=== PATIENT | male | born 1980 | race Caucasian/White ===

== ENCOUNTER 2016-08-11 19:40 | Emergency (ER) | payer OTHER ==
[~2016-08-11] VITALS: Ht 170.2 cm; Wt 118.2 kg
[2016-08-11 19:41] VITALS: TEMP 97.6
[2016-08-11] MEDS ORDERED: AMOXICILLIN 8751 TAB PO (19:44)
[2016-08-11] MEDS ORDERED: AMOXICILLIN875 MG PO (19:54)
[2016-08-11] MEDS ORDERED: PERCOCET 325 MG1 TA2 PO (21:26)
[2016-08-11 22:05] VITALS: BP 130/77; PULSE 74
== END 2016-08-11 22:16 | disposition home or self-care (01) ==
LOC: COL.ER 19:40
DX: S52.502A Unspecified fracture of the lower end of left radius, initial encounter for closed fracture (principal); M25.512 Pain in left shoulder; M25.522 Pain in left elbow; W10.8XXA Fall (on) (from) other stairs and steps, initial encounter; Y92.009 Unspecified place in unspecified non-institutional (private) residence as the place of occurrence of the external cause
CPT/HCPCS: J2405; J3010; J7030

== ENCOUNTER 2016-08-17 06:52 | Day surgery (SDC) | payer OTHER ==
[~2016-08-17] VITALS: Ht 170.2 cm; Wt 122.3 kg
[~2016-08-17 06:52] MED LIST: AMOXICILLIN 8751 TAB PO; AMOXICILLIN875 MG PO; PERCOCET 325 MG1 TA2 PO
[2016-08-17 07:25] VITALS: BP 124/75; PULSE 86; TEMP 97.6
[2016-08-17] MEDS ORDERED: MINIPRESS 5M5 MG/CAP PO (07:31)
[2016-08-17] MEDS ORDERED: DESYREL 50MG50 MG PO (07:32)
[2016-08-17] MEDS ORDERED: ZOLOFT 100MG100 MG PO (07:32)
[2016-08-17 10:55] VITALS: BP 120/73; PULSE 80; TEMP 97.3
[2016-08-17 11:10] VITALS: BP 128/71; PULSE 78
[2016-08-17 11:25] VITALS: BP 132/79; PULSE 89
[2016-08-17 11:40] VITALS: BP 124/72; PULSE 88
[2016-08-17 12:10] VITALS: BP 141/72; PULSE 88
[2016-08-17] MEDS ORDERED: ROXICODONE 55 MG/TAB PO (12:14)
[2016-08-17] MEDS ORDERED: NORCO 325 MG-7.1 TAB PO (12:15)
== END 2016-08-17 12:40 | disposition home or self-care (01) ==
LOC: SDCO 06:52
DX: S52.502A Unspecified fracture of the lower end of left radius, initial encounter for closed fracture (principal); W10.9XXA Fall (on) (from) unspecified stairs and steps, initial encounter
CPT/HCPCS: C1713; J0690; J1100; J2250; J2704; J3010; J7120

== ENCOUNTER → 2019-03-06 | Outpatient (CLI) | payer OTHER ==
[~2019-03-06] MED LIST changes: +DESYREL 50MG50 MG PO; +MINIPRESS 5M5 MG/CAP PO; +NORCO 325 MG-7.1 TAB PO; +ROXICODONE 55 MG/TAB PO; +ZOLOFT 100MG100 MG PO
== END ==
LOC: COL.RAD 10:56
DX: M51.36 Other intervertebral disc degeneration, lumbar region (principal); M46.87 Other specified inflammatory spondylopathies, lumbosacral region

== ENCOUNTER 2019-06-26 08:00 | Outpatient (RCR) | payer OTHER | END 2019-07-02 | disposition home or self-care (01) | LOC: WSC | DX: M54.5 Low back pain (principal) ==

== ENCOUNTER 2019-07-17 08:00 | Outpatient (RCR) | payer OTHER ==
[2019-09-02] MEDS ORDERED: NORCO 325 MG-51 TAB PO (17:08)
== END 2019-10-01 | disposition still patient (30) ==
LOC: WSC
DX: M54.5 Low back pain (principal)

== ENCOUNTER 2019-09-02 12:45 | Emergency (ER) | payer BC ==
[~2019-09-02] VITALS: Ht 170.2 cm; Wt 135.0 kg
[2019-09-02 12:56] VITALS: BP 125/74; TEMP 97.1
[2019-09-02 16:23] LABS: BASO # 0.1 (0.0-0.2); BASO % 0.7 % (0.0-2.0); EOS # 0.3 (0.0-0.7); EOS % 3.6 % (0-4.0); GRAN # 3.7 (1.4-6.5); GRAN % 50.5 % (42.2-75.2); HEMOGLOBIN 14.2 g/dl (13.5-18.0); LYMPH # 2.8 (1.2-3.4); LYMPH % 37.7 % (20.0-51.0); MEAN CELL VOLUME 86 fl (80.0-100.0); MEAN CORPUSCULAR HEMOGLOBIN 29 pg (27.0-31.0); MEAN CORPUSCULAR HGB CONC 34 g/dl (33.0-37.0); MEAN PLATELET VOLUME 9.4 fl (7.4-10.4); MONO # 0.5 (0.1-0.6); MONO % 7.4 % (1.7-9.3); PLATELET COUNT 254 K/mm3 (130-400); RED BLOOD COUNT 4.88 M/mm3 (4.20-5.60); REDCELL DISTRIBUTION WIDTH-CV 12.6 % (11.5-14.5)
[2019-09-02 16:35] LABS: ALBUMIN 4.3 gm/dL (3.5-5.0); BILIRUBIN,TOTAL 0.8 mg/dL (0.0-1.0); CALCIUM 9.1 mg/dL (8.4-10.2); CREATININE, serum 0.71 (0.66-1.25); POTASSIUM 3.6 mmol/L (3.4-5.0); TOTAL PROTEIN 7.6 gm/dL (6.4-8.2)
[2019-09-02] MEDS ORDERED: NORCO 325 MG-51 TAB PO (17:08)
[2019-09-02 17:23] LABS: COLLECTION METHOD CLEAN CATCH
[2019-09-02 17:30] VITALS: PULSE 61
[2019-09-02 17:42] LABS: MUCOUS Present /lpf; PH 5 (5-8); SQUAMOUS EPITHELIAL 0-2 /hpf; URINE APPEARANCE Hazy; URINE BACTERIA None Seen /hpf; URINE BILIRUBIN Negative (NEGATIVE); URINE BLOOD Negative (NEGATIVE); URINE COLOR Yellow; URINE GLUCOSE Negative (NEGATIVE); URINE KETONE Negative (NEGATIVE); URINE LEUKOCYTE ESTERASE Negative (NEGATIVE); URINE NITRATE Negative (NEGATIVE); URINE PROTEIN(semi-quant) Negative (NEGATIVE); URINE RBC 0-2 /hpf; URINE UROBILINOGEN Negative (NEGATIVE)
== END 2019-09-02 17:30 | disposition home or self-care (01) ==
LOC: COL.ER 12:45
PROVIDERS: Emergency Medicine
DX: S30.1XXA Contusion of abdominal wall, initial encounter (principal); W01.190A Fall on same level from slipping, tripping and stumbling with subsequent striking against furniture, initial encounter; Y92.009 Unspecified place in unspecified non-institutional (private) residence as the place of occurrence of the external cause

== ENCOUNTER 2021-01-28 17:00 | Emergency (ER) | payer BC ==
[~2021-01-28] VITALS: Ht 170.2 cm; Wt 129.5 kg
[~2021-01-28 17:00] MED LIST changes: +NORCO 325 MG-51 TAB PO
[2021-01-28 19:26] LABS: BASO % 0.1 % (0.0-2.0); GRAN % 74.6 % (42.2-75.2); HEMATOCRIT 43.1 % (42.0-52.0); HEMOGLOBIN 14.7 g/dl (13.5-18.0); LYMPH # 1.6 (1.2-3.4); LYMPH % 19.5 % (20.0-51.0); MEAN CELL VOLUME 84 fl (80.0-100.0); MEAN CORPUSCULAR HEMOGLOBIN 29 pg (27.0-31.0); MEAN CORPUSCULAR HGB CONC 34 g/dl (33.0-37.0); MEAN PLATELET VOLUME 9.9 fl (7.4-10.4); MONO # 0.4 (0.1-0.6); MONO % 5.5 % (1.7-9.3); PLATELET COUNT 185 K/mm3 (130-400); RED BLOOD COUNT 5.12 M/mm3 (4.20-5.60); REDCELL DISTRIBUTION WIDTH-CV 12.8 % (11.5-14.5)
[2021-01-28 19:37] LABS: ALANINE AMINOTRANSFERASE 122 U/L (4-49); ALBUMIN 4.1 gm/dL (3.5-5.0); ALKALINE PHOSPHATASE 74 U/L (50-136); ANION GAP 7 mmol/L (7-16); AST,SGOT 94 U/L (15-37); BILIRUBIN,TOTAL 0.4 mg/dL (0.0-1.0); BLOOD UREA NITROGEN 12 mg/dL (9-20); CALCIUM 8.9 mg/dL (8.4-10.2); CARBON DIOXIDE 23 mmol/L (22-30); CHLORIDE 105 mmol/L (98-107); GLUCOSE 107 mg/dL (74-106); POTASSIUM 4.2 mmol/L (3.4-5.0); SODIUM 135 mmol/L (137-145); TOTAL PROTEIN 8.1 gm/dL (6.4-8.2)
[2021-01-28 19:56] LABS: TROPONIN-I < 0.012 ng/mL (0.000-0.035)
[2021-01-28] MEDS ORDERED: TYLENOL 325MG325 MG PO (20:45)
[2021-01-28] MEDS ORDERED: MOTRIN 600600 MG/TAB PO (20:45)
[2021-01-28] MEDS ORDERED: PROAIR HFA0.09 MG/AC IH (20:45)
[2021-01-28 21:15] VITALS: BP 138/80; PULSE 80; TEMP 99.4
--- NOTE | 2021-02-11 16:42 | NUR ---
railroad yard worker contacted Dereje with [facility] and provided clinical information. Patient plans for trach and peg placement tomorrow. Dereje verbalized there may be a bed in [facility] if insurance provides approval.
== END 2021-01-28 21:15 | disposition home or self-care (01) ==
LOC: COL.ER 17:00
PROVIDERS: Nurse Practitioner Primary Care
DX: U07.1 COVID-19 (principal); J12.82 Pneumonia due to coronavirus disease 2019
CPT/HCPCS: J0456; J0696; J1100; J7050; J7120

== ENCOUNTER 2021-01-30 13:21 | Inpatient (IN) | payer BC ==
[2021-01-30] VITALS (55 sets, daily range): BP systolic 139; BP diastolic 87; PULSE 101; TEMP 103.2; O2SAT 92–99
[~2021-01-30] VITALS: Ht 170.2 cm; Wt 108.9 kg
[~2021-01-30 13:21] MED LIST changes: +MOTRIN 600600 MG/TAB PO; +PROAIR HFA0.09 MG/AC IH; +TYLENOL 325MG325 MG PO
[2021-01-30 14:11] LABS: BASO % 0.1 % (0.0-2.0); GRAN % 75.1 % (42.2-75.2); HEMATOCRIT 44.6 % (42.0-52.0); HEMOGLOBIN 14.9 g/dl (13.5-18.0); LYMPH # 2.6 (1.2-3.4); LYMPH % 19.8 % (20.0-51.0); MEAN CELL VOLUME 86 fl (80.0-100.0); MEAN CORPUSCULAR HEMOGLOBIN 29 pg (27.0-31.0); MEAN CORPUSCULAR HGB CONC 33 g/dl (33.0-37.0); MEAN PLATELET VOLUME 9.8 fl (7.4-10.4); MONO # 0.5 (0.1-0.6); MONO % 3.9 % (1.7-9.3); PLATELET COUNT 239 K/mm3 (130-400); REDCELL DISTRIBUTION WIDTH-CV 13.2 % (11.5-14.5)
[2021-01-30 14:15] LABS: ALANINE AMINOTRANSFERASE 78 U/L (4-49); ALBUMIN 4.3 gm/dL (3.5-5.0); ALKALINE PHOSPHATASE 63 U/L (50-136); ANION GAP 9 mmol/L (7-16); AST,SGOT 73 U/L (15-37); BILIRUBIN,TOTAL 0.6 mg/dL (0.0-1.0); BLOOD UREA NITROGEN 15 mg/dL (9-20); CARBON DIOXIDE 25 mmol/L (22-30); CHLORIDE 107 mmol/L (98-107); CREATININE, serum 0.77 (0.66-1.25); GLUCOSE 113 mg/dL (74-106); POTASSIUM 3.9 mmol/L (3.4-5.0); SODIUM 141 mmol/L (137-145); TOTAL PROTEIN 8.4 gm/dL (6.4-8.2)
[2021-01-30 14:28] LABS: TROPONIN-I < 0.012 ng/mL (0.000-0.035)
[2021-01-30 14:28] LABS: ARTERIAL BLD GAS O2 SATURATION 92.2 % (92-100); ARTERIAL BLD GAS TCO2 CT 24.2; ARTERIAL BLOOD GAS BASE EXCESS 0.8 (-2-2); ARTERIAL BLOOD GAS HCO3 23.2 meq/L (22-26); ARTERIAL BLOOD GAS PCO2 31.2 mmHg (35-45); ARTERIAL BLOOD GAS PO2 62.5 mmHg (80-100); ARTERIAL BLOOD GAS pH 7.49 (7.35-7.45)
[2021-01-30 18:43] LABS: C-REACTIVE PROTEIN 3.1 mg/dL (0.0-0.9)
[2021-01-30 20:57] LABS: INR 1.2 (0.8-3.0); PROTHROMBIN TIME 13.6 SECONDS (9.7-12.8)
[2021-01-30 21:00] LABS: PARTIAL THROMBOPLASTIN TIME 29.4 SECONDS (26.0-37.0)
[2021-01-31] VITALS (658 sets, daily range): BP systolic 104–135; BP diastolic 60–86; PULSE 52–69; TEMP 97.5–97.9; O2SAT 86–100
[2021-01-31 05:21] LABS: ARTERIAL BLD GAS O2 SATURATION 97.4 % (92-100); ARTERIAL BLD GAS TCO2 CT 22.7; ARTERIAL BLOOD GAS BASE EXCESS -3.1 (-2-2); ARTERIAL BLOOD GAS HCO3 21.5 meq/L (22-26); ARTERIAL BLOOD GAS PCO2 37.4 mmHg (35-45); ARTERIAL BLOOD GAS PO2 94.9 mmHg (80-100); ARTERIAL BLOOD GAS pH 7.38 (7.35-7.45)
[2021-01-31 05:45] LABS: BASO % 0.1 % (0.0-2.0); GRAN # 7.9 (1.4-6.5); GRAN % 79.5 % (42.2-75.2); HEMATOCRIT 37.7 % (42.0-52.0); LYMPH # 1.6 (1.2-3.4); LYMPH % 16.5 % (20.0-51.0); MEAN CELL VOLUME 87 fl (80.0-100.0); MEAN CORPUSCULAR HEMOGLOBIN 29 pg (27.0-31.0); MEAN CORPUSCULAR HGB CONC 33 g/dl (33.0-37.0); MEAN PLATELET VOLUME 10.5 fl (7.4-10.4); MONO # 0.3 (0.1-0.6); MONO % 3.4 % (1.7-9.3); PLATELET COUNT 197 K/mm3 (130-400); RED BLOOD COUNT 4.35 M/mm3 (4.20-5.60); REDCELL DISTRIBUTION WIDTH-CV 13.5 % (11.5-14.5)
[2021-01-31 05:54] LABS: CREATININE, serum 0.85 (0.66-1.25); MAGNESIUM 1.9 mg/dL (1.6-2.3); PHOSPHOROUS 5.5 mg/dL (2.5-4.5)
[2021-01-31 05:58] LABS: HEMOGLOBIN 12.5 g/dl (13.5-18.0)
--- NOTE | 2021-01-31 07:51 | NUR ---
PATIENT ADMITTED TO ICU FROM ED FOR RESPIRATORY DISTRESS ON BIPAP WITH HIGH PROBABILITY OF NEEDING INTUBATION. EDUCATED PT ON WHAT INITUBATION IS AND WHEN/WHY WE INTUBATE. PT UNDERSTANDS HOWEVER REMAINS ANXIOUS ABOUT THE PROCESS. CENTRAL LINE AND ARREAGA PLACED ON ADMISSION. PT T MAX 103- ACETAMINOPHEN GIVEN. HR INITIALLY 110S AND THROUGOUT NIGHT DROPPED INTO 50S. PT AGREED TO PRONE AND DID SO ALL NIGHT, SATS STAYED 95-1005 ON BIPAP 100% FIO2. PT DENIED PAIN. REPORTED ANXIETY WHICH PRECEDEX WAS STARTED FOR. PT RELAXED IN AM AND WITH BRADYCARDIA, DECIDED TO STOP PRECEDEX. PT REPORTS NO ANXIETY AFTER DRIP DC'D. PT SLIGHTLY LABORED TO BREATH WHILE RESTING AND CANNOT TOLERATE WALKING- HAS AN UNSTEADY GAIT AND DESATS. PT TOLERATING PLAN OF CARE WELL. ABG PROGRESSING AND PT NOTIFIED OF THIS. NO OTHER QUESTIONS/CONCERNS AT THIS TIME. CARE RELINQUISHED AT THIS TIME.
[2021-01-31] MEDS ORDERED: VANTIN100 MG (08:12)
[2021-01-31] MEDS ORDERED: ZITHROMAX Z PA250 MG PO (08:13)
--- NOTE | 2021-01-31 19:30 | NUR ---
Received report from GENA Leslie.
--- NOTE | 2021-01-31 21:00 | NUR ---
Patient resting quietly in bed watching TV. All vitals within normal limits. Patient continues to receive BiPap at 85% FiO2, tolerating well. He denies any pain or discomfort. IVF infusing at 75 mL/hr. Bed in lowest position, all alarms on. Call light within reach. No further needs noted.
[2021-02-01] VITALS (855 sets, daily range): BP systolic 124–146; BP diastolic 79–91; PULSE 60–78; TEMP 97.5–98.9; O2SAT 77–100
[2021-02-01 04:16] LABS: ARTERIAL BLD GAS O2 SATURATION 96.4 % (92-100); ARTERIAL BLD GAS TCO2 CT 23.8; ARTERIAL BLOOD GAS BASE EXCESS -2.1 (-2-2); ARTERIAL BLOOD GAS HCO3 22.6 meq/L (22-26); ARTERIAL BLOOD GAS PCO2 38.8 mmHg (35-45); ARTERIAL BLOOD GAS PO2 85.8 mmHg (80-100); ARTERIAL BLOOD GAS pH 7.38 (7.35-7.45)
[2021-02-01 04:46] LABS: BASO % 0.1 % (0.0-2.0); GRAN # 13.5 (1.4-6.5); GRAN % 86.4 % (42.2-75.2); HEMOGLOBIN 12.3 g/dl (13.5-18.0); LYMPH # 1.4 (1.2-3.4); MEAN CELL VOLUME 85 fl (80.0-100.0); MEAN CORPUSCULAR HEMOGLOBIN 28 pg (27.0-31.0); MEAN CORPUSCULAR HGB CONC 33 g/dl (33.0-37.0); MEAN PLATELET VOLUME 10.4 fl (7.4-10.4); MONO # 0.6 (0.1-0.6); MONO % 3.8 % (1.7-9.3); PLATELET COUNT 215 K/mm3 (130-400); RED BLOOD COUNT 4.34 M/mm3 (4.20-5.60); REDCELL DISTRIBUTION WIDTH-CV 13.4 % (11.5-14.5)
[2021-02-01 04:49] LABS: HEMATOCRIT 36.9 % (42.0-52.0)
[2021-02-01 04:59] LABS: CALCIUM 8.1 mg/dL (8.4-10.2); CREATININE, serum 0.51 (0.66-1.25); MAGNESIUM 2.2 mg/dL (1.6-2.3); POTASSIUM 3.8 mmol/L (3.4-5.0)
[2021-02-01 05:10] LABS: C-REACTIVE PROTEIN 15.5 mg/dL (0.0-0.9)
--- NOTE | 2021-02-01 18:52 | NUR ---
Pt tolerated BiPAP all day without difficulty. Pt states he is in good spirits and denies shortness of breath and states his breathing is getting better. Pt does desaturate in to the upper 80's during short BiPAP breaks for meals/hydration. Sister Carol updated earlier.
[2021-02-02] VITALS (939 sets, daily range): BP systolic 134–153; BP diastolic 74–93; PULSE 66–93; TEMP 97.3–99.3; O2SAT 80–100
[2021-02-02 05:17] LABS: BASO % 0.1 % (0.0-2.0); GRAN # 14.6 (1.4-6.5); GRAN % 86.9 % (42.2-75.2); HEMATOCRIT 37.3 % (42.0-52.0); HEMOGLOBIN 12.5 g/dl (13.5-18.0); LYMPH # 1.3 (1.2-3.4); LYMPH % 7.9 % (20.0-51.0); MEAN CELL VOLUME 85 fl (80.0-100.0); MEAN CORPUSCULAR HEMOGLOBIN 28 pg (27.0-31.0); MEAN CORPUSCULAR HGB CONC 34 g/dl (33.0-37.0); MEAN PLATELET VOLUME 10.2 fl (7.4-10.4); MONO # 0.7 (0.1-0.6); MONO % 4.1 % (1.7-9.3); PLATELET COUNT 256 K/mm3 (130-400); REDCELL DISTRIBUTION WIDTH-CV 13.4 % (11.5-14.5)
[2021-02-02 05:29] LABS: C-REACTIVE PROTEIN 5.6 mg/dL (0.0-0.9); CALCIUM 8.1 mg/dL (8.4-10.2); CREATININE, serum 0.53 (0.66-1.25); MAGNESIUM 2.4 mg/dL (1.6-2.3); PHOSPHOROUS 3.2 mg/dL (2.5-4.5); POTASSIUM 3.9 mmol/L (3.4-5.0)
[2021-02-02 06:02] LABS: ARTERIAL BLD GAS O2 SATURATION 91.8 % (92-100); ARTERIAL BLD GAS TCO2 CT 26.3; ARTERIAL BLOOD GAS BASE EXCESS -0.4 (-2-2); ARTERIAL BLOOD GAS HCO3 24.9 meq/L (22-26); ARTERIAL BLOOD GAS PCO2 43.5 mmHg (35-45); ARTERIAL BLOOD GAS PO2 63.6 mmHg (80-100); ARTERIAL BLOOD GAS pH 7.38 (7.35-7.45)
--- NOTE | 2021-02-02 07:25 | NUR ---
BEDSIDE SHIFT REPORT RECEIVED FROM GENA BONE. PATIENT RESTING IN BED WITH EYES OPEN. VSS AT THIS TIME OTHER THAN BEING A BIT HYPERTENSIVE AND ANXIOUS. CALL LIGHT WITHIN REACH. STILL ON BIPAP. ARREAGA CATHETER PATENT AND DRAINING TO GRAVITY. FLUIDS GOING INTO RIJ TLC. TWO PERIPHERAL LINES IN. NO COMPLAINTS AT THIS TIME.
--- NOTE | 2021-02-02 09:12 | NUR ---
DR. DOMÍNGUEZ AT BEDSIDE. SPOKE TO REGARDING PATIENT'S HYPERTENSION FROM ANXIETY AND WANTING TO SWITCH TO AIRVO FOR A TRIAL. AGREEABLE AND SAID WOULD PLACE ORDERS FOR ANXIETY MEDICATION.
--- NOTE | 2021-02-02 09:38 | NUR ---
DR. SANFORD AT BEDSIDE. AGREEABLE TO AIRVO TRIAL. WILL CALL RESPIRATORY.
--- NOTE | 2021-02-02 10:30 | NUR ---
PATIENT SWITCHED TO AIRVO SUCCESSFULLY. WILL SEE HOW HE DOES THROUGHOUT THE DAY. ENCOURAGED TO PRONE IF COMFORTABLE ON AIRVO MASK.
--- NOTE | 2021-02-02 15:30 | NUR ---
KALI attempted to call patient on cell phone [phone] to complete intake, no answer. KALI attempted to call spouse Neelam at [phone]. No answer. KALI will continue to contact to complete intake. KALI will continue to follow.
--- NOTE | 2021-02-02 19:15 | NUR ---
Received report from GENA Tuttle.
--- NOTE | 2021-02-02 19:45 | NUR ---
Patient resting quietly in bed watching television. Receiving AirVo at 60L 75-80% FiO2, tolerating well. Patient self-proned with assistance of staff. States feeling short of breath following repositioning; some anxiety noted. PRN Ativan administered. Within ten minutes, patient states he feels more comfortable. Axillary temperature of 99.3, all other vitals within normal limits. Denies any pain or discomfort.
[2021-02-03] VITALS (594 sets, daily range): BP systolic 116–154; BP diastolic 47–87; PULSE 72–100; TEMP 98.5–101; O2SAT 38–100
[2021-02-03 05:01] LABS: BASO % 0.1 % (0.0-2.0); GRAN # 11.9 (1.4-6.5); GRAN % 80.9 % (42.2-75.2); HEMATOCRIT 38.1 % (42.0-52.0); HEMOGLOBIN 12.9 g/dl (13.5-18.0); LYMPH % 13.9 % (20.0-51.0); MEAN CELL VOLUME 84 fl (80.0-100.0); MEAN CORPUSCULAR HEMOGLOBIN 28 pg (27.0-31.0); MEAN CORPUSCULAR HGB CONC 34 g/dl (33.0-37.0); MEAN PLATELET VOLUME 10.1 fl (7.4-10.4); MONO # 0.4 (0.1-0.6); MONO % 2.6 % (1.7-9.3); PLATELET COUNT 296 K/mm3 (130-400); RED BLOOD COUNT 4.54 M/mm3 (4.20-5.60); REDCELL DISTRIBUTION WIDTH-CV 13.2 % (11.5-14.5)
[2021-02-03 05:17] LABS: C-REACTIVE PROTEIN 5.9 mg/dL (0.0-0.9); CALCIUM 8.1 mg/dL (8.4-10.2); CREATININE, serum 0.6 (0.66-1.25); POTASSIUM 3.7 mmol/L (3.4-5.0)
--- NOTE | 2021-02-03 07:19 | NUR ---
BEDSIDE SHIFT REPORT RECEIVED FROM GENA ROCK. PATIENT STILL ON AIRVO AND TOLERATING WELL. VSS FOR PATIENT'S BASELINE. RECEIVING ATIVAN FOR ANXIETY AND CONSEQUENTIAL HYPERTENSION. CALL BURROWS WITHIN REACH. ARREAGA CATHETER IN PLACE. FLUIDS STILL RUNNING.
--- NOTE | 2021-02-03 09:53 | NUR ---
Late entry: On 01/31/2021, social media marketing specialist contacted patient's sister Carol and confirmed that patient's in October of 2020 and that patient has a 16 year old son (Jung) and a 19 year old son, Boris #[phone]. Per patient, Carol was given the code to call in and obtain information about patient to pass along to patient's family. 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 Patient continues to pay to have continued coverage under his 's plan through [employer]. Carol stated that after patient's , his mother (who is currently in [place] and waiting for Covid status to clear before she returns) and patient's niece, Gaby [phone] are staying with patient. Patient's 16 year old son is in the home with Gaby. Case management will continue to follow patient and assist with securing a safe discharge plan.
--- NOTE | 2021-02-03 10:12 | NUR ---
PATIENT'S SATURATIONS HAVE BEEN SETTLING IN MID 80S. NOTIFIED RESPIRATORY THERAPY REGARDING INCREASED OXYGEN NEEDS. STATED HE WILL COME DOWN.
--- NOTE | 2021-02-03 10:18 | NUR ---
RESPIRATORY AT BEDSIDE TO ADJUST AIRVO. SATURATIONS WERE IN 90S AND THEN DECREASED ONCE AGAIN TO MID TO HIGH 80s. WENT IN TO SWITCH PATIENT BACK TO BIPAP. ORIGINALLY ON 70% FiO2 AND OK'D VIA RESPIRATORY TO INCREASE FROM THE DOOR BECAUSE OF ISOLATION PRECAUTIONS. O2 WAS IN CREASED TO 90% AND ADVISED PATIENT THAT HE NEEDED TO SLOW BREATHING IF HE EXPECTED TO KEEP HIS SATURATION LEVELS UP. ALSO ADVISED PATIENT THAT WE WOULD HAVE TO INTUBATE HIM SHOULD HE CONTINUE TO HYPERVENTILATE AND DROP IN SATURATION LEVEL.
--- NOTE | 2021-02-03 10:30 | NUR ---
PATIENT'S SISTER CALLED FOR AN UPDATE. NOTIFIED ABOUT INCREASED O2 NEEDS.
--- NOTE | 2021-02-03 14:17 | NUR ---
derrick worker well service met with patient's nurse and requested PT/OT orders. Patient is currently on a bipap. Will await therapy orders and follow patient to assist with securing a safe discharge plan. Will follow and assess for appropriateness of [facility] referral.
--- NOTE | 2021-02-03 18:12 | NUR ---
WENT IN TO ASSESS PATIENT AND GIVE EVENING MEDS. ATTEMPTED TO SWITCH PATIENT TO AIRVO MASK TO GIVE ORAL MEDICATION AND TO TRY EATING DINNER. SATURATION LEVELS DROPPED AND PATIENT COULD NOT TOLERATE BEING OFF BIPAP. SATURATIONS DROPPED TO THE 70s.
--- NOTE | 2021-02-03 18:45 | NUR ---
CALLED RESPIRATORY TO UPDATE REGARDING PATIENT'S RESPIRATORY STATUS. EXPLAINED SWITCHING TO BIPAP AND INCREASED OXYGENATION NEEDS. SAID SHE WOULD COME DOWN TO ASSESS AND ADJUST SETTINGS.
--- NOTE | 2021-02-03 18:46 | NUR ---
CALLED ALLEGRA BONE REGARDING PATIENT'S OXYGEN STATUS WITH CONCERN FOR NEEDING INTUBATION. SMITHA AGREEABLE BUT WANTING TO UPDATE DR. FRAZIER TO GET INPUT ON RECOMMENDATIONS. ADVISED TO CALL HIM. WILL CALL.
--- NOTE | 2021-02-03 18:47 | NUR ---
CALLED ANESTHESIA TO GIVE NOTICE OF POSSIBLE INTUBATION.
--- NOTE | 2021-02-03 18:47 | NUR ---
CALLED DR. FRAZIER TO UPDATE ON PATIENT'S STATUS AND INCREASING OXYGENATION NEEDS. EXPLAINED HOW PATIENT WOULD BECOME TACHYPNIC AND DECOMPENSATE. EXPLAINED HOW THIS NURSE HAD ADVISED PATIENT ABOUT NEEDING TO SLOW BREATHING DOWN TO INCREASE O2 SATURATION. WAS ASKED TO TRANSFER TO [facility] TO CONFER.
--- NOTE | 2021-02-03 19:56 | NUR ---
CONSENT FOR INTUBATION WAS OBTAINED VERBALLY FROM PATIENT WITH 2 WITNESSING REGISTERED NURSES AT BEDSIDE. EXPLAINED PROCEDURE AND ANSWERED ALL QUESTIONS AT 190 AND ANESTHESIA CAME IN TO BEGIN PROCEDURE WITH RESPIRATORY THERAPY. 1912 2MG OF VERSED WAS PUSHED. 1913 200MCG PROPOFOL WAS PUSHED WITH 100MG OF SUCCITYLCOLEINE. PATIENT WAS INTUBATED AT 1914 WITH 8.5 TUBE, CONFIRMED WITH BREATH SOUNDS AND 23 AT THE LIPS. CONCERNED FOR SATURATION LEVEL IN 70s AND RECHECKED BREATH SOUNDS AND CONFIRMED WITH RESPIRATORY. PROPOFOL AND FENTANYL DRIPS STARTED AT 1921. OG WAS PLACED AT 1922 AND 61CM AT THE TEETH. 1932 CONCERN FOR SATURATION LEVELS AND EXCESSIVE COUGHING, GIVEN VECURONIUM 10MG AND PATIENT SUCCESSFULLY HAD SATURATION LEVELS COME UP TO HIGH 80s. CALLED TO CONFIRM WITH CHEST XRAY.
[2021-02-03 20:36] LABS: ARTERIAL BLD GAS TCO2 CT 28.9; ARTERIAL BLOOD GAS BASE EXCESS 2.9 (-2-2); ARTERIAL BLOOD GAS HCO3 27.6 meq/L (22-26); ARTERIAL BLOOD GAS PCO2 42.6 mmHg (35-45); ARTERIAL BLOOD GAS PO2 74.4 mmHg (80-100); ARTERIAL BLOOD GAS pH 7.43 (7.35-7.45)
[2021-02-03 22:57] LABS: ARTERIAL BLD GAS O2 SATURATION 94.6 % (92-100); ARTERIAL BLD GAS TCO2 CT 26.4; ARTERIAL BLOOD GAS HCO3 25.2 meq/L (22-26); ARTERIAL BLOOD GAS PCO2 38.7 mmHg (35-45); ARTERIAL BLOOD GAS pH 7.43 (7.35-7.45)
[2021-02-04] VITALS (592 sets, daily range): BP systolic 95–131; BP diastolic 65–81; PULSE 45–73; TEMP 98.3–99.5; O2SAT 72–100
--- NOTE | 2021-02-04 01:30 | NUR ---
PATIENT O2 SATS DIMINISH TO 85%, BREATH SOUNDS DIFFICULT TO OBTAIN, PLACE IN PRONE POSITION, VENTILATION AND PEEP INCREASED
[2021-02-04 01:53] LABS: ARTERIAL BLD GAS O2 SATURATION 87.9 % (92-100); ARTERIAL BLD GAS TCO2 CT 24.2; ARTERIAL BLOOD GAS BASE EXCESS -0.7 (-2-2); ARTERIAL BLOOD GAS HCO3 23.1 meq/L (22-26); ARTERIAL BLOOD GAS PCO2 35.4 mmHg (35-45); ARTERIAL BLOOD GAS PO2 52.5 mmHg (80-100); ARTERIAL BLOOD GAS pH 7.43 (7.35-7.45)
--- NOTE | 2021-02-04 05:22 | NUR ---
0215 RT,RN HOSPITLIST, HOUSE SUP, AT BEDSIDE. PATIENTS SATURATIONS DECLINED ON VENT. RT BAGGING PT SATURATIONS DID IMPROVE WITH BVM VENTILATION. RT AND RN BAG LAVAGED PATIENT GETTING LARGE THICK CLEAR SECRTIONS ORALLY AND DOWN THE ET TUBE WITH LITTLE SATURATION IMPROVEMENT. ULTIMATELY ENDING IN PRONING PT WITH A BIG IMPROVMENT IN SATURATIONS WITH VENT SETTINGS 450/24/20/100%
[2021-02-04 06:14] LABS: ARTERIAL BLD GAS O2 SATURATION 99.2 % (92-100); ARTERIAL BLD GAS TCO2 CT 27.2; ARTERIAL BLOOD GAS BASE EXCESS 0.4 (-2-2); ARTERIAL BLOOD GAS HCO3 25.8 meq/L (22-26); ARTERIAL BLOOD GAS PCO2 44.9 mmHg (35-45); ARTERIAL BLOOD GAS PO2 211.4 mmHg (80-100); ARTERIAL BLOOD GAS pH 7.38 (7.35-7.45)
[2021-02-04 06:30] LABS: HEMATOCRIT 39.8 % (42.0-52.0); HEMOGLOBIN 13.3 g/dl (13.5-18.0); MEAN CELL VOLUME 85 fl (80.0-100.0); MEAN CORPUSCULAR HEMOGLOBIN 28 pg (27.0-31.0); MEAN CORPUSCULAR HGB CONC 33 g/dl (33.0-37.0); MEAN PLATELET VOLUME 9.8 fl (7.4-10.4); PLATELET COUNT 308 K/mm3 (130-400); RED BLOOD COUNT 4.68 M/mm3 (4.20-5.60); REDCELL DISTRIBUTION WIDTH-CV 13.2 % (11.5-14.5)
[2021-02-04 06:42] LABS: CALCIUM 8.6 mg/dL (8.4-10.2); CREATININE, serum 0.86 (0.66-1.25); POTASSIUM 3.8 mmol/L (3.4-5.0)
[2021-02-04 06:57] LABS: C-REACTIVE PROTEIN 21.3 mg/dL (0.0-0.9)
--- NOTE | 2021-02-04 07:00 | NUR ---
PATIENT LEFT AT SDETTING CAUSE WHEN NOT DISTURBED WOULD SLEEP AND CAN EASILY BE AWAKENED, INTUBATION 12 HOURS AGO
[2021-02-04 07:19] LABS: BAND 7 % (0-10); EOSINOPHIL 1 % (0-4); LYMPHOCYTE 7 % (20.0-51.0); NEUTROPHILS 80 % (42.0-75.2); PLATELET ESTIMATE NORMAL (NORMAL)
[2021-02-04 10:57] LABS: MAGNESIUM 2.8 mg/dL (1.6-2.3); PHOSPHOROUS 5.3 mg/dL (2.5-4.5)
--- NOTE | 2021-02-04 15:57 | NUR ---
Pt tolerated prone placement without difficulty. Prior to proning: pt able to open eyes, follow commands and nonverbally communicate understanding on proning process - pt also informed, per sister Carol that all the family is praying for him.
--- NOTE | 2021-02-04 17:00 | NUR ---
Sedation Vacation not completed d/t prone position. However pt is able to open eyes and respond to verbal stimuli and shake head in understanding to keep head still while laying prone.
[2021-02-05] VITALS (609 sets, daily range): BP systolic 109–122; BP diastolic 56–72; PULSE 41–58; TEMP 98.4–99; O2SAT 90–100
[2021-02-05 05:03] LABS: HEMATOCRIT 38.7 % (42.0-52.0); HEMOGLOBIN 12.6 g/dl (13.5-18.0); MEAN CELL VOLUME 86 fl (80.0-100.0); MEAN CORPUSCULAR HEMOGLOBIN 28 pg (27.0-31.0); MEAN CORPUSCULAR HGB CONC 33 g/dl (33.0-37.0); MEAN PLATELET VOLUME 10.2 fl (7.4-10.4); PLATELET COUNT 302 K/mm3 (130-400); REDCELL DISTRIBUTION WIDTH-CV 13.3 % (11.5-14.5)
[2021-02-05 05:12] LABS: CALCIUM 8.3 mg/dL (8.4-10.2); CREATININE, serum 0.73 (0.66-1.25)
[2021-02-05 05:32] LABS: C-REACTIVE PROTEIN 14.3 mg/dL (0.0-0.9)
[2021-02-05 05:35] LABS: ARTERIAL BLD GAS TCO2 CT 26.5; ARTERIAL BLOOD GAS BASE EXCESS -0.3 (-2-2); ARTERIAL BLOOD GAS HCO3 25.2 meq/L (22-26); ARTERIAL BLOOD GAS PCO2 43.9 mmHg (35-45); ARTERIAL BLOOD GAS PO2 197.2 mmHg (80-100); ARTERIAL BLOOD GAS pH 7.38 (7.35-7.45)
[2021-02-05 05:36] LABS: BAND 1 % (0-10); BASOPHIL 1 % (0-2); EOSINOPHIL 1 % (0-4); LYMPHOCYTE 11 % (20.0-51.0); NEUTROPHILS 85 % (42.0-75.2); PLATELET ESTIMATE NORMAL (NORMAL)
[2021-02-05 05:37] LABS: HYPOCHROMIA 1+
--- NOTE | 2021-02-05 06:27 | NUR ---
PATIENT ANESTHIA AND PAIN MEDICATIONS RETURNS TO ORGINAL SETTINGS OF FENTANYL 100 MCQ/HR AND PROPOFOLOL AT 30 MCQ/KG/HR, CAUSE PATIENT IN PRONE POSTION IN BED NO WEANING TRIAL YET.
--- NOTE | 2021-02-05 08:00 | NUR ---
Pt tolerated position change from prone to supine well and without difficulty and no line or tube compromise. Pt is able to nod head yes to nonverbally communicate: Orientation and brief education provided. MD Deshawn called to update Carol family member
--- NOTE | 2021-02-05 14:41 | NUR ---
Patient's 19 year old son, Boris [phone] is patient's legal next of kin. family caseworker spoke with patient's nurse and advised of the above information. Patient is currently on a ventilator. Worker left message for patient's sister, Carol [phone] to call.
--- NOTE | 2021-02-05 17:20 | NUR ---
Pt tolerated proning without diffulties or line/tube compromise. Prior to proning Teressa,RT fixed an audible leak that could be heard during exhalation.
--- NOTE | 2021-02-05 18:20 | NUR ---
Pt becoming aggitated, lifting up head and upper body while prone causing the ventilator to trip high priority alarms. Pt calmed down verbaly, pt nods head in agreement, pt denies pain or discomfort, specific cause of restlessness uncertain. Pt hand held and positive reinforcement provided.
--- NOTE | 2021-02-05 20:00 | NUR ---
RECIEVED REPORT FROM JERALD AVERY. PT ASSESSMENT AND VITAL SIGNS COMPLETED. SEE DOCUMENTATION. PATIENT IN THE PRONE POSITION AT THIS TIME. WAKING EASILY. BUT FOLLOWS COMMANDS.
[2021-02-06] VITALS (685 sets, daily range): BP systolic 103–115; BP diastolic 61–64; PULSE 50–63; TEMP 97–98.9; O2SAT 56–100
[2021-02-06 04:20] LABS: HEMOGLOBIN 11.6 g/dl (13.5-18.0); MEAN CELL VOLUME 87 fl (80.0-100.0); MEAN CORPUSCULAR HEMOGLOBIN 28 pg (27.0-31.0); MEAN CORPUSCULAR HGB CONC 32 g/dl (33.0-37.0); MEAN PLATELET VOLUME 10.2 fl (7.4-10.4); PLATELET COUNT 335 K/mm3 (130-400); RED BLOOD COUNT 4.12 M/mm3 (4.20-5.60); REDCELL DISTRIBUTION WIDTH-CV 13.3 % (11.5-14.5)
[2021-02-06 04:22] LABS: HEMATOCRIT 35.8 % (42.0-52.0)
[2021-02-06 04:30] LABS: CALCIUM 8.1 mg/dL (8.4-10.2); CREATININE, serum 0.67 (0.66-1.25); POTASSIUM 3.8 mmol/L (3.4-5.0)
[2021-02-06 04:33] LABS: EOSINOPHIL 8 % (0-4); LYMPHOCYTE 9 % (20.0-51.0); NEUTROPHILS 77 % (42.0-75.2); PLATELET ESTIMATE NORMAL (NORMAL)
[2021-02-06 04:34] LABS: HYPOCHROMIA 1+
--- NOTE | 2021-02-06 08:45 | NUR ---
PICC intact right upper arm. PICC dressing change done with sterile technique. Small amount of red drainage noted at site. Insertion site cleansed with ChloraPrep x1, chlorhexidine impregnated disc applied, skin prep, StatLock, and Tegaderm applied. No signs or symptoms of IV complications noted. No further drainage. Arm wrapped with Lul to protect catheter.
[2021-02-06 12:04] LABS: ARTERIAL BLD GAS O2 SATURATION 96.2 % (92-100); ARTERIAL BLD GAS TCO2 CT 29.5; ARTERIAL BLOOD GAS BASE EXCESS 3.7 (-2-2); ARTERIAL BLOOD GAS HCO3 28.2 meq/L (22-26); ARTERIAL BLOOD GAS PCO2 42.5 mmHg (35-45); ARTERIAL BLOOD GAS PO2 89.8 mmHg (80-100); ARTERIAL BLOOD GAS pH 7.44 (7.35-7.45)
--- NOTE | 2021-02-06 14:30 | NUR ---
Left nare epistaxis noted. Approx. 3mL blood loss, hemostasis occured with no intervention - bleeding had already stopped prior to entering room and observing
--- NOTE | 2021-02-06 16:00 | NUR ---
Pt tolerated proning well and with no difficulties or complications
--- NOTE | 2021-02-06 19:15 | NUR ---
Received report from GENA Leslie.
--- NOTE | 2021-02-06 20:00 | NUR ---
Patient resting quietly in bed. In prone position at this time, tolerating well. Opens eyes to speech and follows verbal commands. Skin cool and dry to touch. All vitals within normal limits.
[2021-02-07] VITALS (795 sets, daily range): BP systolic 97–118; BP diastolic 55–72; PULSE 64–114; TEMP 98.5–100.1; O2SAT 72–100
--- NOTE | 2021-02-07 05:00 | NUR ---
Patient proned, no sedation vacation performed.
[2021-02-07 05:41] LABS: HEMATOCRIT 40.8 % (42.0-52.0); HEMOGLOBIN 12.8 g/dl (13.5-18.0); MEAN CELL VOLUME 91 fl (80.0-100.0); MEAN CORPUSCULAR HEMOGLOBIN 29 pg (27.0-31.0); MEAN CORPUSCULAR HGB CONC 31 g/dl (33.0-37.0); MEAN PLATELET VOLUME 10.3 fl (7.4-10.4); PLATELET COUNT 328 K/mm3 (130-400); RED BLOOD COUNT 4.48 M/mm3 (4.20-5.60); REDCELL DISTRIBUTION WIDTH-CV 13.7 % (11.5-14.5)
[2021-02-07 05:50] LABS: CALCIUM 7.9 mg/dL (8.4-10.2); CREATININE, serum 0.7 (0.66-1.25); POTASSIUM 3.6 mmol/L (3.4-5.0)
[2021-02-07 06:45] LABS: BAND 19 % (0-10); EOSINOPHIL 4 % (0-4); LYMPHOCYTE 38 % (20.0-51.0); METAMYELOCYTE 1 % (0-0); NEUTROPHILS 22 % (42.0-75.2); PLATELET ESTIMATE NORMAL (NORMAL)
--- NOTE | 2021-02-07 07:30 | NUR ---
REPORT RECEIVED FROM GENA ROCK
--- NOTE | 2021-02-07 07:45 | NUR ---
PATIENT PLACED IN SUPINE POSITION D/T RESTLESSNESS AND HE IS TRYING TO SIT HIMSELF UP. HE TOLERATED FLIPPING TO SUPINE WITH NO ISSUE. VS REMAIN STABLE. HE CALMS AFTER HE IS REPOSITIONED.
[2021-02-07 08:31] LABS: ARTERIAL BLD GAS O2 SATURATION 88.5 % (92-100); ARTERIAL BLD GAS TCO2 CT 27.7; ARTERIAL BLOOD GAS BASE EXCESS -0.1 (-2-2); ARTERIAL BLOOD GAS HCO3 26.2 meq/L (22-26); ARTERIAL BLOOD GAS PCO2 49.2 mmHg (35-45); ARTERIAL BLOOD GAS PO2 54.9 mmHg (80-100); ARTERIAL BLOOD GAS pH 7.34 (7.35-7.45)
--- NOTE | 2021-02-07 09:00 | NUR ---
DR. FRAZIER HERE TO SEE PATIENT. VENT SETTINGS ADJUSTED, PER HIS ORDERS. HE STATES TO ADD PROPOFOL IF PATIENT BECOMES AGITATED AND DIFFICULT TO SEDATE.
[2021-02-07 16:13] LABS: ARTERIAL BLD GAS O2 SATURATION 98.6 % (92-100); ARTERIAL BLOOD GAS BASE EXCESS 3.7 (-2-2); ARTERIAL BLOOD GAS HCO3 29.5 meq/L (22-26); ARTERIAL BLOOD GAS PCO2 48.9 mmHg (35-45)
[2021-02-07 16:14] LABS: ARTERIAL BLOOD GAS PO2 142.7 mmHg (80-100)
--- NOTE | 2021-02-07 18:00 | NUR ---
PROPOFOL ADDED TO SEDATION D/T RESTLESSNESS.
--- NOTE | 2021-02-07 19:20 | NUR ---
SEDATION VACATION NOT ATTEMPTED DUE TO RESTLESSNESS; PROPOFOL INITIATED PER DR. FRAZIER
--- NOTE | 2021-02-07 19:45 | NUR ---
REPORT GIVEN TO GENA DAUGHERTY
[2021-02-08] VITALS (606 sets, daily range): BP systolic 94–113; BP diastolic 57–75; PULSE 52–78; TEMP 96.8–98.6; O2SAT 76–100
--- NOTE | 2021-02-08 05:50 | NUR ---
PT HAD SIGNIFCANT CUFF LEAK AND KINK IN TUBE WHILE IN PRONE POSITION THAT PT WAS NOT BEING VENTILATED PEOPERLY. AT [address]. OLD TUBE TAKEN OUT AT 0216, NEW TUBE PUT IN PLACE AT 0219. 23 @ TEETH 8.5. PT PLACED BACK ON VENT VENTILATING FINE BUT LOW SATUARTIONS AT 63% PT TAKEN OFF VENT, BAGGED BY ANESTHESIA WITH BIG VT, BAG HAS PEEP VALVE WELL. AFTER 2 MINUTES OF BAGGING PT SATURATIONS IMPROVED TO 93%. PT THEN PLACED BACK ON VENT. TUBE SECURED WITH HOLISTER WITH A BITE BLOCK AND NEW KANG IN LINE SUCTION.
[2021-02-08 06:00] LABS: ARTERIAL BLD GAS O2 SATURATION 93.8 % (92-100); ARTERIAL BLD GAS TCO2 CT 27.6; ARTERIAL BLOOD GAS BASE EXCESS 2.1 (-2-2); ARTERIAL BLOOD GAS HCO3 26.4 meq/L (22-26); ARTERIAL BLOOD GAS PCO2 40.2 mmHg (35-45); ARTERIAL BLOOD GAS PO2 67.4 mmHg (80-100); ARTERIAL BLOOD GAS pH 7.44 (7.35-7.45)
[2021-02-08 06:33] LABS: BASO % 0.1 % (0.0-2.0); EOS # 0.3 (0.0-0.7); GRAN # 5.3 (1.4-6.5); GRAN % 77.7 % (42.2-75.2); HEMATOCRIT 37.1 % (42.0-52.0); HEMOGLOBIN 12.1 g/dl (13.5-18.0); LYMPH # 0.9 (1.2-3.4); LYMPH % 12.6 % (20.0-51.0); MEAN CELL VOLUME 90 fl (80.0-100.0); MEAN CORPUSCULAR HEMOGLOBIN 29 pg (27.0-31.0); MEAN CORPUSCULAR HGB CONC 33 g/dl (33.0-37.0); MEAN PLATELET VOLUME 10.1 fl (7.4-10.4); MONO # 0.3 (0.1-0.6); MONO % 4.3 % (1.7-9.3); PLATELET COUNT 303 K/mm3 (130-400); RED BLOOD COUNT 4.13 M/mm3 (4.20-5.60); REDCELL DISTRIBUTION WIDTH-CV 13.7 % (11.5-14.5)
[2021-02-08 06:44] LABS: CALCIUM 7.6 mg/dL (8.4-10.2); CREATININE, serum 0.52 (0.66-1.25); POTASSIUM 4.3 mmol/L (3.4-5.0)
--- NOTE | 2021-02-08 06:53 | NUR ---
NO SEDATION VACATION DUE TO 2 PROCEDURES THIS NIGHT. INCLUDING CHEST TUBE INSERTION. KEPT SEDATED FOR COMFORT. ACTIVE IN ALL 4 EXTREMETIES AND GRIMACES TO PAIN.
--- NOTE | 2021-02-08 07:30 | NUR ---
REPORT RECEIVED FROM GENA DAUGHERTY
--- NOTE | 2021-02-08 08:07 | NUR ---
AROUND 0100 PATIENT VENTILATOR ALARMED FOR SEVERAL STRANGE ALARMS THAT DIDNT CORRELATE WITH PATIENT ACTUAL PRESENTATION. WHILE EVALUATING PATIENT, NOTED THAT CUFF SOUNDED LOW ON AIR. CUFF WAS REINFLATED AND ISSUE WOULD TEMPORARILY RESOLVE BUT GURGLING SOUND OF DEFLATED CUFF WOULD RETURN. ATTEMPTED TO TURN PT HEAD TO REALIGN ETT. UNABLE TO INLINE SUCTION PT AND CUFF REMAINED LOW ON AIR DESPITE REPLACING AIR SEVERAL TIMES. DECIDED TO SUPINE PATIENT TO BETTER EVALUATE ETT STATUS. PT TOLERATED SUPINE POSITION WELL HOWEVER SATS BEGAN TO SLOWLY DROP. CALLED IN HOUSE HOSPITALIST AND [facility] WHO AGREED TO PLACE NEW ETT TUBE. THIS WAS DONE BUT RECOVERING SATS WAS DIFFICULT. CXR READING SHOWED R SIDED PHEUMOTHORAX. FAMILY CALELD BUT UNABLE TO REACH SON FOR CONSENT AFTER SEVERAL ATTEMPTS. URGENT CONSENT SIGNED. AND DR ELIZABETH CALLED IN TO PLACE CHEST TUBE. PT TOLERATED PROCEDURE WELL- WILL BE NOTED IN SEPERATE NOTE. PT REMAINS STABLE AFTER PROCEDURES THIS NIGHT AND SON CONTACTED IN AM WAS ABLE TO BE UPDATED AND APPROVED CONSENT FOR CHEST TUBE PLACEMENT.
--- NOTE | 2021-02-08 08:13 | NUR ---
INTUBATION PROCEDURE: 0213- START TIME 0216- OLD TUBE OUT 0219- NEW TUBE 23 AT TEETH 0221- BAGGING VS 154/96, R26, 63% O2 022- O2 INCREASED TO 93% AT 100% FIO2 30 OF LILY GIVEN 0227- RADIOLOGY OBTAINED CXR
--- NOTE | 2021-02-08 08:16 | NUR ---
CHEST TUBE PROCEDURE: R CHEST TUBE PLACEMENT FOR PNEUMOTHORAX 0357- START TIME HR 76, R24, 93% O2 ON 100% FIO2, 101/74 WITH MAP 85 0414- BP 123/81, 93% 20R, 77HR 0431- PROCEDURE DONE 0432- CXR OBTAINED LOCAL LIDOCAINE GIVEN
--- NOTE | 2021-02-08 08:20 | NUR ---
INTUBATION DONE BY DR ORTIZ CHEST TUUBE DONE BY DR ELIZABETH
--- NOTE | 2021-02-08 09:00 | NUR ---
DR. FRAZIER ROUNDS ON PATIENT. ORDERS RECEIVED FOR VENT SETTING CHANGES AND TO HOLD OFF ON PRONING PATIENT TODAY.
--- NOTE | 2021-02-08 15:00 | NUR ---
MINIMAL OUTPUT FROM CHEST TUBE. PATIENT WOKE OUT OF SEDATION WHEN IT WAS REDUCED. HE DENIED PAIN AND WAS ABLE TO APPROPRIATLEY ANSWER QUESTIONS AND FOLLOW COMMANDS. WILL CONTINUE TO MONITOR.
[2021-02-09] VITALS (634 sets, daily range): BP systolic 90–131; BP diastolic 54–76; PULSE 48–71; TEMP 97.5–99; O2SAT 76–100
--- NOTE | 2021-02-09 04:48 | NUR ---
OBTAINED CHEST XRAY. DR ELIZABETH DISCUSSED RESULTS WITH NO EVIDENCE OF PNEUMOTHORAX. RECOMMENDS DISCUSSING WITH DR FRAZIER IN AM FOR POTENTIAL NEED FOR BRONCH.
--- NOTE | 2021-02-09 05:03 | NUR ---
NOT ALL SEDATION TURNED OFF DUE TO PATIENT NEW CHEST TUBE AND TAKES LARGE VOLUMES IN. PT FOLLOWS COMMANDS HOWEVER STILL NOTED THAT L EYE DRIFTS TO RIGHT UPPER CORNER.
[2021-02-09 05:58] LABS: ARTERIAL BLD GAS O2 SATURATION 97.6 % (92-100); ARTERIAL BLD GAS TCO2 CT 31.2; ARTERIAL BLOOD GAS BASE EXCESS 4.7 (-2-2); ARTERIAL BLOOD GAS HCO3 29.8 meq/L (22-26); ARTERIAL BLOOD GAS PCO2 46.3 mmHg (35-45); ARTERIAL BLOOD GAS pH 7.43 (7.35-7.45)
[2021-02-09 06:01] LABS: BASO % 0.1 % (0.0-2.0); EOS # 0.1 (0.0-0.7); EOS % 1.4 % (0-4.0); GRAN # 6.6 (1.4-6.5); GRAN % 79.2 % (42.2-75.2); HEMOGLOBIN 11.4 g/dl (13.5-18.0); LYMPH # 1.2 (1.2-3.4); LYMPH % 13.8 % (20.0-51.0); MEAN CELL VOLUME 92 fl (80.0-100.0); MEAN CORPUSCULAR HEMOGLOBIN 28 pg (27.0-31.0); MEAN CORPUSCULAR HGB CONC 31 g/dl (33.0-37.0); MEAN PLATELET VOLUME 10.8 fl (7.4-10.4); MONO # 0.4 (0.1-0.6); MONO % 4.2 % (1.7-9.3); PLATELET COUNT 310 K/mm3 (130-400); RED BLOOD COUNT 4.03 M/mm3 (4.20-5.60); REDCELL DISTRIBUTION WIDTH-CV 13.5 % (11.5-14.5)
[2021-02-09 06:10] LABS: ALBUMIN 2.8 gm/dL (3.5-5.0); BILIRUBIN,TOTAL 0.3 mg/dL (0.0-1.0); CALCIUM 7.9 mg/dL (8.4-10.2); CREATININE, serum 0.58 (0.66-1.25); POTASSIUM 4.5 mmol/L (3.4-5.0); TOTAL PROTEIN 5.7 gm/dL (6.4-8.2)
--- NOTE | 2021-02-09 23:30 | NUR ---
PT SATS IN LOW 90'S INCREASED FI02 TO 70% SATURATIONS INCREASED TO 95%. PT RESTING COMFORTABLY IN BED
[2021-02-10] VITALS (791 sets, daily range): BP systolic 93–133; BP diastolic 55–81; PULSE 56–85; TEMP 97.7–99.5; O2SAT 48–100
[2021-02-10 04:42] LABS: ALBUMIN 2.8 gm/dL (3.5-5.0); BILIRUBIN,TOTAL 0.4 mg/dL (0.0-1.0); CREATININE, serum 0.7 (0.66-1.25); MAGNESIUM 2.5 mg/dL (1.6-2.3); POTASSIUM 4.2 mmol/L (3.4-5.0); TOTAL PROTEIN 5.6 gm/dL (6.4-8.2)
[2021-02-10 04:49] LABS: PRE ALBUMIN 29.4 mg/dL (17.6-36.0)
[2021-02-10 05:47] LABS: ARTERIAL BLD GAS O2 SATURATION 94.9 % (92-100); ARTERIAL BLOOD GAS BASE EXCESS 4.3 (-2-2); ARTERIAL BLOOD GAS HCO3 30.4 meq/L (22-26); ARTERIAL BLOOD GAS PCO2 51.9 mmHg (35-45); ARTERIAL BLOOD GAS PO2 76.1 mmHg (80-100); ARTERIAL BLOOD GAS pH 7.39 (7.35-7.45)
--- NOTE | 2021-02-10 06:07 | NUR ---
PT ABLE TO FOLLOW COMMANDS AND HAS BEEN REPOSITIONING SELF AT TIMES THROUGOUT NIGHT. IS SOMEWHAT CONFUSED BUT CALM AND AWAKE ON SEDATION. NO VACATION DONE DUE TO PT TAKING LARGE VOLUMES IN WHEN SEDATION DECREAED.
--- NOTE | 2021-02-10 07:15 | NUR ---
RECEIVED REPORT FROM GENA DAUGHERTY. PATIENT IS CURRENTLY PRONED. VSS. SUJIT PICC LINE HAS MIGRATED OUT PER REPORT BUT STILL IS RECEIVING MEDICATIONS. WILL ADDRESS WITH CENTRAL LINE CARE NURSE. ARREAGA CATHETER STILL IN PLACE. WILL BE SWITCHING PATIENT BACK TO SUPINE THIS MORNING.
--- NOTE | 2021-02-10 07:15 | NUR ---
RECEIVED REPORT FROM GENA DAUGHERTY. PATIENT IS RESTING COMFORTABLY. PATIENT IS STILL SEDATED AND INTUBATED. SEE GTT TITRATION FLOWSHEET. PATIENT'S SUJIT PICC IS IN PLACE, PATENT AND WITH GOOD BLOOD RETURN. ARREAGA CATHETER STILL IN PLACE. RIGHT SIDED CHEST TUBE STILL IN PLACE. VSS. WILL ASSESS FURTHER.
--- NOTE | 2021-02-10 11:16 | NUR ---
CALLED DR. HALEY REGARDING CONSULT.
--- NOTE | 2021-02-10 17:26 | NUR ---
NO SEDATION VACATION TODAY. PATIENT FAR TOO RESTLESS WHILE TRYING TO ADJUST TO BEING PRONED.
[2021-02-11] VITALS (654 sets, daily range): BP systolic 95–127; BP diastolic 51–71; PULSE 46–62; TEMP 96.4–97.9; O2SAT 58–100
[2021-02-11 03:02] LABS: HEMOGLOBIN 11.6 g/dl (13.5-18.0); MEAN CELL VOLUME 89 fl (80.0-100.0); MEAN CORPUSCULAR HEMOGLOBIN 29 pg (27.0-31.0); MEAN CORPUSCULAR HGB CONC 32 g/dl (33.0-37.0); MEAN PLATELET VOLUME 10.4 fl (7.4-10.4); PLATELET COUNT 314 K/mm3 (130-400); RED BLOOD COUNT 4.04 M/mm3 (4.20-5.60); REDCELL DISTRIBUTION WIDTH-CV 13.3 % (11.5-14.5)
[2021-02-11 03:06] LABS: CALCIUM 8.4 mg/dL (8.4-10.2); CREATININE, serum 0.54 (0.66-1.25); POTASSIUM 4.5 mmol/L (3.4-5.0)
[2021-02-11 03:29] LABS: BAND 2 % (0-10); HYPOCHROMIA 2+; LYMPHOCYTE 9 % (20.0-51.0); METAMYELOCYTE 1 % (0-0); NEUTROPHILS 82 % (42.0-75.2); PLATELET ESTIMATE NORMAL (NORMAL)
[2021-02-11 05:43] LABS: ARTERIAL BLD GAS O2 SATURATION 95.5 % (92-100); ARTERIAL BLOOD GAS HCO3 28.6 meq/L (22-26); ARTERIAL BLOOD GAS PCO2 47.5 mmHg (35-45); ARTERIAL BLOOD GAS PO2 79.3 mmHg (80-100)
--- NOTE | 2021-02-11 06:45 | NUR ---
PT ACTIVELY MOVVING ALL EXTREMETIES AND ATTEMPTING TO TURN HEAD ON 175 OF FENT AND 8 OF VERSED. PRECEDEX PREVIOUSLY TURNED OFF DUE TO BRADYCARDIA AND OTHER SEDATIONI WAS SLOWLY TITRATED WELL FOR BRADYCARDIA/HYPOTENSION. PT WAS TOO ACTIVE FOR SAFETY ON LOW SEDATION WHILE PRONED AND SEDATION WAS TURNED TO 200 MCG/HR OF FENT AND 10 MG/HR OF VERSED
--- NOTE | 2021-02-11 07:35 | NUR ---
BEDSIDE SHIFT REPORT RECEIVED FROM GENA DAUGHERTY. PATIENT IS CURRENTLY PRONED, SEDATED AND INTUBATED. VSS, SUJIT PICC IN PLACE, PATENT WITH GOOD BLOOD RETURN. ARREAGA CATHETER STILL IN PLACE, PATENT AND DRAINING TO GRAVITY. CHEST TUBE STILL IN PLACE. WILL BE ADDRESSING WITH SURGERY TODAY. SEE GTT TITRATION FLOWSHEET.
--- NOTE | 2021-02-11 08:40 | NUR ---
DR. FRAZIER AT BEDSIDE. DISCUSSED PLAN OF CARE AND SURGERY FOR TRACH AND PEG PLACEMENT. WILL CALL ENT AGAIN TODAY.
--- NOTE | 2021-02-11 10:48 | NUR ---
PLACED CALL TO DR. CARRASCO REGARDING TRACHEOSTOMY PLACEMENT. WANTING REPEAT COVID TEST AND WILL BE UPDATING FAMILY.
--- NOTE | 2021-02-11 16:51 | NUR ---
fancy needleworker contacted patient's sister, Carol, and advised of referral and possible transfer to [facility] this week. Worker provided information to Carol about the legal requirements for decision makers. At this time, patient's son, Boris, is the legal decision maker for patient. Carol verbalized understanding of the process for legal next of kin in the absence of a written durable power of staff attorney for health care.
--- NOTE | 2021-02-11 17:01 | NUR ---
UPDATED REGARDING COVID TEST BEING POSITIVE. DR. CARRASCO CALLED AND WANTS TO WAIT A WEEK WITH A NEGATIVE TEST ON SURGERY. WILL UPDATE FAMILY
--- NOTE | 2021-02-11 17:50 | NUR ---
NO SEDATION VACATION TODAY. PATIENT IS JUST NOW RELAXING FULLY.
--- NOTE | 2021-02-11 18:12 | NUR ---
CALLED SURGERY REGARDING POSITIVE TEST AND ENT RECOMMENDATIONS TO WAIT A WEEK AND RETEST.
--- NOTE | 2021-02-11 18:36 | NUR ---
received call from surgery making sure trach and peg was canceled for tomorrow. this nurse confirmed
--- NOTE | 2021-02-11 18:39 | NUR ---
CALLED AND UPDATED TJ (SISTER) REGARDING WAITING FOR SURGERY FOR ANOTHER WEEK.
[2021-02-12] VITALS (530 sets, daily range): BP systolic 94–122; BP diastolic 58–74; PULSE 38–58; TEMP 96.1–97.9; O2SAT 34–100
--- NOTE | 2021-02-12 06:20 | NUR ---
PATIENT ABLE TO FOLLOW COMMANDS ON CURRENT SEDATION. YANELI LNOT DECREASE DUE TO PATINENT BECOMING VERY ACTIVE. PT TRIES TO GET LEGS OUT OF BED AND WILL MOVE HEAD FREQUENTLY WHICH IS TOO HIGH OF RISK FOR DISLODGING TUBE. PRECEDEX TITRATE OFF ONE TIME FOR HR <40 AND PT DID BECOME VERY ACTIVE BUT WAS RESPONDED WELL WHEN ASKED TO RELAX/LAY DOWN.
[2021-02-12 06:28] LABS: BASO % 0.3 % (0.0-2.0); EOS # 0.1 (0.0-0.7); EOS % 0.9 % (0-4.0); GRAN # 7.4 (1.4-6.5); HEMOGLOBIN 11.2 g/dl (13.5-18.0); LYMPH # 2.1 (1.2-3.4); LYMPH % 20.4 % (20.0-51.0); MEAN CELL VOLUME 91 fl (80.0-100.0); MEAN CORPUSCULAR HEMOGLOBIN 29 pg (27.0-31.0); MEAN CORPUSCULAR HGB CONC 32 g/dl (33.0-37.0); MEAN PLATELET VOLUME 11.3 fl (7.4-10.4); MONO # 0.4 (0.1-0.6); PLATELET COUNT 290 K/mm3 (130-400); REDCELL DISTRIBUTION WIDTH-CV 13.5 % (11.5-14.5)
[2021-02-12 06:30] LABS: HEMATOCRIT 35.5 % (42.0-52.0)
[2021-02-12 06:34] LABS: CALCIUM 8.4 mg/dL (8.4-10.2); CREATININE, serum 0.6 (0.66-1.25); POTASSIUM 4.2 mmol/L (3.4-5.0)
--- NOTE | 2021-02-12 09:28 | NUR ---
Report received by GENA Combs. PT assessment completed. IV lines, tubes, and medications all confirmed. PT moved from prone position to supine with help of 2 RNs, RT, and 2 physical therapists. PT vitals obtained. PT is currently on ventilator with chest tube in place on the right side. PTs eyes are open, answering yes or no questions and following commands. PT is breathing over vent a little and coughing. Precedex is titrated up as ordered on eMAR.
--- NOTE | 2021-02-12 22:47 | NUR ---
ATTEMPTED TO CALL PATIENT SONBUTCH WITH NO ANSWER, VOICE MAIL LEFT TO RETURN CALL
--- NOTE | 2021-02-12 22:59 | NUR ---
PATIENT'S SISTER IN LAW TJ RETURNED DR. CONDON'S PHONE CALL, UPDATED ON PATIENT CURRENT SITUATION, AND EVENTS LEADING UP TO IT, ALSO ENCOURAGED TO DISCUSS WITH PATIENT'S SON ABOUT HOW FAR OF INTERVENTIONS THAT WERE WANTED.
[2021-02-13] VITALS (644 sets, daily range): BP systolic 73–141; BP diastolic 30–83; PULSE 87–119; TEMP 37.1; O2SAT 82–98
--- NOTE | 2021-02-13 00:12 | NUR ---
2024 NOTIFIED THAT UPON EXITING ANOTHER ROOM THAT PATIENT'S VENT ALARMING UPON ENTERING ROOM NOTED THAT PATIENT HAD PULLED HIMSELF UP ON HIS KNEES, AND UPON WALKING AROUND TO THE OTHER SIDE OF THE BED NOTED ETT LAYING ON FLOOR AND PATIENT WITH BLOODY MUCOID SECRETIONS ON BED, OTHER TEAM MEMBERS PARTICIPATED IN ENSURING SAFTEY OF PATIENT (HE IS TRYING TO GET OOB) AND CALLING PROVIDERS FOR ASSISTANCE AND GETTING MEDICATIONS NEEDED, PATIENT GIVEN 10 MG VEC PER ER DOC VERBAL ORDER, THEN PLACED SUPINE AND PROCEDED WITH REINTUBATION PER ER DRLamar INTUBATION ACHIEVED AT 2101, DURING ATTEMPT AT INTUBATION PATIENT HAVING LARGE EMESIS OF UNDIGESTED TUBE FEEDING SUCTIONED APPROX 150 ML OF TUBE FEEDING FROM ORAL CAVITY BY RT. DR. FRAZIER AT BEDSIDE FOR EMERGENT BRONCOSCOPY SAMPLE TAKEN TO LAB FOR EVAL
[2021-02-13 00:15] LABS: ARTERIAL BLD GAS O2 SATURATION 63.2 % (92-100); ARTERIAL BLOOD GAS HCO3 32.4 meq/L (22-26)
[2021-02-13 00:17] LABS: ARTERIAL BLOOD GAS PCO2 115.8 mmHg (35-45); ARTERIAL BLOOD GAS PO2 45.2 mmHg (80-100); ARTERIAL BLOOD GAS pH 7.07 (7.35-7.45)
--- NOTE | 2021-02-13 01:32 | NUR ---
0035 CALL PLACED TO GWEN WITH [facility], DISCUSSED ABG RESULTS AND INFORMED HER THAT DR. FRAZIER HAD STATED THAT IS PH WAS LESS THAN 7.35 THAT HE WISHED TO START A BICARB DRIP ON PATIENT, STATED THAT SHE WOULD PASS THE INFORMATION ON TO DR. MCNALLY 0100 RECEIVED PHONE CALL FROM DR. MCNALLY WHO STATED THAT WITH THE CO2 LEVEL ON HIS ABG THAT SHE DID NOT WANT TO START BICARB DRIP AT THIS TIME, STATED SHE ORDERED A REPEAT ABG AND THEN WOULD RE-EVAL WITH THOSE RESULTS
[2021-02-13 03:14] LABS: ARTERIAL BLD GAS O2 SATURATION 75.1 % (92-100); ARTERIAL BLD GAS TCO2 CT 30.6; ARTERIAL BLOOD GAS BASE EXCESS -5.1 (-2-2); ARTERIAL BLOOD GAS HCO3 27.7 meq/L (22-26); ARTERIAL BLOOD GAS PO2 51.5 mmHg (80-100)
[2021-02-13 03:16] LABS: ARTERIAL BLOOD GAS PCO2 93.7 mmHg (35-45); ARTERIAL BLOOD GAS pH 7.09 (7.35-7.45)
--- NOTE | 2021-02-13 05:03 | NUR ---
PATIENT IS CURRENTLY SEDATED AND RECEIVING A PARALYTIC DUE TO DECLINE IN RESPIRATORY STATUS
[2021-02-13 05:26] LABS: ARTERIAL BLD GAS O2 SATURATION 83.4 % (92-100); ARTERIAL BLD GAS TCO2 CT 32.6; ARTERIAL BLOOD GAS BASE EXCESS -1.7 (-2-2); ARTERIAL BLOOD GAS HCO3 29.9 meq/L (22-26); ARTERIAL BLOOD GAS PO2 55.5 mmHg (80-100)
[2021-02-13 05:27] LABS: ARTERIAL BLOOD GAS PCO2 87.1 mmHg (35-45); ARTERIAL BLOOD GAS pH 7.15 (7.35-7.45)
[2021-02-13 06:32] LABS: HEMATOCRIT 46.3 % (42.0-52.0); MEAN CELL VOLUME 94 fl (80.0-100.0); MEAN CORPUSCULAR HEMOGLOBIN 29 pg (27.0-31.0); MEAN CORPUSCULAR HGB CONC 31 g/dl (33.0-37.0); MEAN PLATELET VOLUME 10.6 fl (7.4-10.4); PLATELET COUNT 340 K/mm3 (130-400); RED BLOOD COUNT 4.93 M/mm3 (4.20-5.60); REDCELL DISTRIBUTION WIDTH-CV 13.7 % (11.5-14.5)
[2021-02-13 06:44] LABS: CALCIUM 8.5 mg/dL (8.4-10.2); CREATININE, serum 0.76 (0.66-1.25); POTASSIUM 4.6 mmol/L (3.4-5.0)
[2021-02-13 07:02] LABS: HEMOGLOBIN 14.2 g/dl (13.5-18.0)
--- NOTE | 2021-02-13 07:30 | NUR ---
REPORT RECEIVED FROM GENA KEY. VENT SETTINGS, LINES, TUBE PLACEMENT CONFIRMED. PATIENT IS CURRENTLY PRONE.
--- NOTE | 2021-02-13 09:00 | NUR ---
PATIENT PLACED SUPINE. SEDATION STOPPED AND VEC STOPPED. HE IS ENCOURAGED TO WAKE UP FOR NEURO ASSESSMENT. ASSESSMENT COMPLETED. BP REMAINS HYPOTENSIVE. WILL START LEVOPHED. DR. FRAZIER AWARE.
[2021-02-13 09:09] LABS: BAND 39 % (0-10); EOSINOPHIL 1 % (0-4); LYMPHOCYTE 26 % (20.0-51.0); NEUTROPHILS 27 % (42.0-75.2)
[2021-02-13 09:11] LABS: PLATELET ESTIMATE NORMAL (NORMAL)
--- NOTE | 2021-02-13 09:30 | NUR ---
PATIENT WAKES AND FOLLOWS COMMANDS. HE REMAINS GROGGY, BUT SHOWS THAT HIS NEURO STATUS IS INTACT. LEVOPHED STARTED. BP IMPROVING.
--- NOTE | 2021-02-13 09:40 | NUR ---
DR. FRAZIER HAS MEETING WITH SISTER IN LAW, TJ. SHE STATES THAT SHE WILL BE BACK TO VISIT LATER TODAY WITH PATIENT'S SON, DANILO.
--- NOTE | 2021-02-13 11:30 | NUR ---
DR. FRAZIER GIVES ORDER FOR ARTERIAL LINE TO BE PLACED AND PATIENT TO BE PLACED BACK IN PRONE POSITION D/T PERSISTENT HYPOXIA WITH SPO2 AT 83%, EVEN WITH VENT SETTING CHANGES. ANESTHESIA CALLED.
[2021-02-13 12:19] LABS: ARTERIAL BLD GAS O2 SATURATION 77.9 % (92-100); ARTERIAL BLD GAS TCO2 CT 29.2; ARTERIAL BLOOD GAS BASE EXCESS -4.7 (-2-2); ARTERIAL BLOOD GAS HCO3 26.6 meq/L (22-26); ARTERIAL BLOOD GAS pH 7.13 (7.35-7.45)
[2021-02-13 12:20] LABS: ARTERIAL BLOOD GAS PCO2 82.5 mmHg (35-45); ARTERIAL BLOOD GAS PO2 47.5 mmHg (80-100)
--- NOTE | 2021-02-13 13:00 | NUR ---
PATIENT PLACED BACK IN PRONE POSITION. SPO2 IMPROVED TO 95%. VECURONIUM RESTARTED AT 1100 TO ALLOW FOR PATIENT TO BE MORE COMPLIANT WITH VENT.
--- NOTE | 2021-02-13 17:00 | NUR ---
TJ, SIS IN LAW, SON- BUTCH, AND SON- MARA HERE TO SEE PATIENT
--- NOTE | 2021-02-13 19:30 | NUR ---
REPORT GIVEN TO GENA KEY
[2021-02-13 21:05] LABS: ARTERIAL BLD GAS TCO2 CT 32.9; ARTERIAL BLOOD GAS BASE EXCESS 2.2 (-2-2); ARTERIAL BLOOD GAS HCO3 30.8 meq/L (22-26); ARTERIAL BLOOD GAS PO2 91.4 mmHg (80-100); ARTERIAL BLOOD GAS pH 7.28 (7.35-7.45)
[2021-02-13 21:08] LABS: ARTERIAL BLOOD GAS PCO2 66.9 mmHg (35-45)
--- NOTE | 2021-02-13 21:13 | NUR ---
[facility] WAS CALLED AT 2109 TO REPORT BLOOD GAS RESULTS. SPOKE TO AND SHE RECOMMENDED VENT CHANGE OF AN INCREASE IN RATE.
[2021-02-14] VITALS (683 sets, daily range): BP systolic 84–143; BP diastolic 48–90; PULSE 63–116; TEMP 36.5–37.6; O2SAT 70–100
[2021-02-14 05:33] LABS: ARTERIAL BLD GAS O2 SATURATION 97.8 % (92-100); ARTERIAL BLOOD GAS BASE EXCESS 6.8 (-2-2); ARTERIAL BLOOD GAS HCO3 33.3 meq/L (22-26); ARTERIAL BLOOD GAS PO2 102.1 mmHg (80-100); ARTERIAL BLOOD GAS pH 7.39 (7.35-7.45)
[2021-02-14 06:21] LABS: HEMATOCRIT 37.7 % (42.0-52.0); MEAN CELL VOLUME 91 fl (80.0-100.0); MEAN CORPUSCULAR HGB CONC 32 g/dl (33.0-37.0); PLATELET COUNT 247 K/mm3 (130-400); RED BLOOD COUNT 4.14 M/mm3 (4.20-5.60); REDCELL DISTRIBUTION WIDTH-CV 13.6 % (11.5-14.5)
[2021-02-14 06:32] LABS: CALCIUM 7.7 mg/dL (8.4-10.2); CREATININE, serum 0.89 (0.66-1.25); POTASSIUM 4.5 mmol/L (3.4-5.0)
[2021-02-14 06:40] LABS: HEMOGLOBIN 12.2 g/dl (13.5-18.0); MEAN CORPUSCULAR HEMOGLOBIN 29 pg (27.0-31.0)
[2021-02-14 07:27] LABS: BAND 55 % (0-10); LYMPHOCYTE 6 % (20.0-51.0); METAMYELOCYTE 5 % (0-0); NEUTROPHILS 31 % (42.0-75.2)
[2021-02-14 07:31] LABS: HYPOCHROMIA 2+; PLATELET ESTIMATE NORMAL (NORMAL)
--- NOTE | 2021-02-14 09:02 | NUR ---
pack worker contacted Carol and confirmed that she is patient's blood sister. Worker requested that Carol and Boris come into the hospital to confirm legal next of kin and importance for Boris to answer calls from ICU. Worker offered support and stressed that we support Carol's involvoment and and want to convey that to both of them, however, stress that Boris's voice must be heard with all decisions/consents. Carol verbalized understanding and will arrange a time for she and Boris to visit today.
[2021-02-14 09:10] LABS: ARTERIAL BLOOD GAS PCO2 34.3 mmHg (35-45); ARTERIAL BLOOD GAS pH 7.46 (7.35-7.45)
[2021-02-14 09:11] LABS: ARTERIAL BLD GAS O2 SATURATION 96.2 % (92-100); ARTERIAL BLOOD GAS BASE EXCESS 0.7 (-2-2); ARTERIAL BLOOD GAS HCO3 23.9 meq/L (22-26); ARTERIAL BLOOD GAS PO2 77.7 mmHg (80-100)
--- NOTE | 2021-02-14 10:27 | NUR ---
DOUBLE CONCENTRATION LEVOPHED BAG HUNG AND PUMP CHANGED ACCORDINGLY.
--- NOTE | 2021-02-14 13:16 | NUR ---
limehouse worker and nurse, Kiya met with patient's son, Boris and sister, Carol and discussed legal next of kin due to the fact that patient had not completed a durable power of litigation attorney associate for health care. Boris verbalizes understanding that he must answer his phone and give consents and decisions and that we will make a three way call to include patient's sister Carol. Worker and Geraldo provided emotional support and assisted Carol and Boris complete their own durable power of litigation attorney associate paperwork.
--- NOTE | 2021-02-14 16:05 | NUR ---
PTs vecuronium drip held and precedex decreased for sedation vacation. PT is able to open eyes and answer yes or no questions. PT precedex increased per order prior to proning. PT continued to fight vent and attempt to get on all fours while proned. Versed increased and vecuroning initiated at starting dose.
[2021-02-15] VITALS (596 sets, daily range): BP systolic 105–132; BP diastolic 54–78; PULSE 56–70; TEMP 36.8–37.2; O2SAT 74–100
[2021-02-15 04:40] LABS: ARTERIAL BLD GAS O2 SATURATION 98.6 % (92-100); ARTERIAL BLD GAS TCO2 CT 32.6; ARTERIAL BLOOD GAS BASE EXCESS 6.7 (-2-2); ARTERIAL BLOOD GAS HCO3 31.2 meq/L (22-26); ARTERIAL BLOOD GAS PCO2 44.5 mmHg (35-45); ARTERIAL BLOOD GAS pH 7.46 (7.35-7.45)
[2021-02-15 04:41] LABS: ARTERIAL BLOOD GAS PO2 123.2 mmHg (80-100)
[2021-02-15 05:14] LABS: MEAN CELL VOLUME 90 fl (80.0-100.0); MEAN CORPUSCULAR HEMOGLOBIN 30 pg (27.0-31.0); MEAN CORPUSCULAR HGB CONC 33 g/dl (33.0-37.0); MEAN PLATELET VOLUME 11.1 fl (7.4-10.4); PLATELET COUNT 218 K/mm3 (130-400); RED BLOOD COUNT 3.73 M/mm3 (4.20-5.60); REDCELL DISTRIBUTION WIDTH-CV 13.5 % (11.5-14.5)
[2021-02-15 05:20] LABS: HEMATOCRIT 33.7 % (42.0-52.0)
[2021-02-15 05:23] LABS: CALCIUM 8.1 mg/dL (8.4-10.2); CREATININE, serum 0.68 (0.66-1.25); POTASSIUM 4.1 mmol/L (3.4-5.0)
[2021-02-15 05:57] LABS: BAND 26 % (0-10); LYMPHOCYTE 30 % (20.0-51.0); NEUTROPHILS 44 % (42.0-75.2)
[2021-02-15 05:58] LABS: PLATELET ESTIMATE NORMAL (NORMAL)
--- NOTE | 2021-02-15 07:00 | NUR ---
RECEIVED REPORT FROM GENA KEY. PT RESTING EASILY IN PRONE POSITION AT THIS TIME. CURRENT VENT SETTINGS: RR 28, FIO2 80%, PEEP 20, TV 450. OGT TO LIS. FC PATENT AND DRAINING TO GRAVITY. TRANSCRIPTION SPECIALIST IN PLACE. RT CHEST TUBE TO WATER SEAL, MINIMAL DRAINAGE NOTED. VSS. RT RADIAL ART LINE IN PLACE. SEE GTT FLOWSHEET.
--- NOTE | 2021-02-15 08:50 | NUR ---
DR FRAZIER AT BEDSIDE. INFORMED PROVIDER ABOUT DRESSING ON THE CHEST TUBE LOOKS GREEN COLORED SHADOWING AND HAS HAD MINIMAL OUTPUT OVERNIGHT, PROVIDER STATES TO CALL DR HALEY TO REMOVE CHEST TUBE TODAY AND TO CULTURE THE SITE. PROVIDER ALSO STATES CAN RESTART TF PER ORDERS TODAY.
--- NOTE | 2021-02-15 10:05 | NUR ---
DR HALEY AT BEDSIDE REMOVING RT CHEST TUBE. PT TOLERATED WELL. TF STARTED AT 10ML/HR PER ORDERS. OGT NOTED AT 60CM AT THE LIPS.
--- NOTE | 2021-02-15 11:15 | NUR ---
ETT ADVANCED 2 CM TO 24 PER W/O INCIDENT.
--- NOTE | 2021-02-15 11:37 | NUR ---
PER DR FRAZIER, PUSH ETT DOWN 2CM. RT NOTIFIED. ETT ADVANCED TO 24CM AT THE TEETH NOW.
[2021-02-15 11:42] LABS: ARTERIAL BLD GAS O2 SATURATION 92.3 % (92-100); ARTERIAL BLD GAS TCO2 CT 34.4; ARTERIAL BLOOD GAS BASE EXCESS 6.6 (-2-2); ARTERIAL BLOOD GAS HCO3 32.8 meq/L (22-26); ARTERIAL BLOOD GAS PCO2 54.1 mmHg (35-45); ARTERIAL BLOOD GAS PO2 64.8 mmHg (80-100)
--- NOTE | 2021-02-15 17:00 | NUR ---
PT AWAKE AND COUGHING AGAINST VENT SETTING OFF ALARMS. PT PUSHES AGAINST BED WHILE BEING IN PRONED POSITION. PT ABLE TO CALM SELF AFTER A FEW MINUTES OF NOT BEING DISTURBED. NOT FOLLOWING COMMANDS THOUGH.
--- NOTE | 2021-02-15 18:00 | NUR ---
TF INCREASED TO 20ML/HR PER ORDERS. RESIDUAL 20 ML.
[2021-02-16] VITALS (629 sets, daily range): BP systolic 100–125; BP diastolic 60–75; PULSE 56–76; TEMP 37.4–37.5; O2SAT 73–100
[2021-02-16 05:06] LABS: ARTERIAL BLD GAS O2 SATURATION 98.3 % (92-100); ARTERIAL BLD GAS TCO2 CT 30.6; ARTERIAL BLOOD GAS BASE EXCESS 3.2 (-2-2); ARTERIAL BLOOD GAS PCO2 49.2 mmHg (35-45); ARTERIAL BLOOD GAS pH 7.39 (7.35-7.45)
[2021-02-16 05:09] LABS: ARTERIAL BLOOD GAS PO2 122.4 mmHg (80-100)
[2021-02-16 05:20] LABS: HEMOGLOBIN 10.9 g/dl (13.5-18.0); MEAN CELL VOLUME 91 fl (80.0-100.0); MEAN CORPUSCULAR HEMOGLOBIN 29 pg (27.0-31.0); MEAN CORPUSCULAR HGB CONC 32 g/dl (33.0-37.0); MEAN PLATELET VOLUME 10.7 fl (7.4-10.4); PLATELET COUNT 216 K/mm3 (130-400); RED BLOOD COUNT 3.74 M/mm3 (4.20-5.60); REDCELL DISTRIBUTION WIDTH-CV 13.7 % (11.5-14.5)
[2021-02-16 05:25] LABS: HEMATOCRIT 34.1 % (42.0-52.0)
[2021-02-16 05:29] LABS: CALCIUM 8.3 mg/dL (8.4-10.2); CREATININE, serum 0.66 (0.66-1.25); POTASSIUM 4.9 mmol/L (3.4-5.0)
[2021-02-16 06:06] LABS: BAND 9 % (0-10); LYMPHOCYTE 2 % (20.0-51.0); NEUTROPHILS 89 % (42.0-75.2); PLATELET ESTIMATE NORMAL (NORMAL)
--- NOTE | 2021-02-16 07:00 | NUR ---
RECEIVED REPORT FROM GENA KEY. PT RESTING EASILY ON SAME VENT SETTINGS. VSS. STREETCAR REPAIRER IN PLACE. FC PATENT AND DRAINING TO GRAVITY. TF INFUSING IN OGT AT 30ML/HR. SEE GTT FLOWSHEET.
--- NOTE | 2021-02-16 10:40 | NUR ---
RESIDUAL 5ML. TF INCREASED TO 40ML/HR.
--- NOTE | 2021-02-16 18:33 | NUR ---
RESIDUAL 20 ML. TF INCREASED TO 50ML/HR PER ORDERS.
[2021-02-17] VITALS (810 sets, daily range): BP systolic 90–122; BP diastolic 38–83; PULSE 53–93; TEMP 96.3–99.3; O2SAT 82–100
[2021-02-17 04:35] LABS: ARTERIAL BLD GAS O2 SATURATION 97.1 % (92-100); ARTERIAL BLD GAS TCO2 CT 29.6; ARTERIAL BLOOD GAS BASE EXCESS 3.3 (-2-2); ARTERIAL BLOOD GAS HCO3 28.3 meq/L (22-26); ARTERIAL BLOOD GAS PCO2 44.6 mmHg (35-45); ARTERIAL BLOOD GAS PO2 91.4 mmHg (80-100); ARTERIAL BLOOD GAS pH 7.42 (7.35-7.45)
[2021-02-17 06:19] LABS: BASO # 0.1 (0.0-0.2); BASO % 0.5 % (0.0-2.0); EOS % 0.2 % (0-4.0); GRAN # 14.9 (1.4-6.5); GRAN % 85.8 % (42.2-75.2); HEMOGLOBIN 10.3 g/dl (13.5-18.0); LYMPH # 1.3 (1.2-3.4); LYMPH % 7.7 % (20.0-51.0); MEAN CELL VOLUME 92 fl (80.0-100.0); MEAN CORPUSCULAR HEMOGLOBIN 29 pg (27.0-31.0); MEAN CORPUSCULAR HGB CONC 31 g/dl (33.0-37.0); MEAN PLATELET VOLUME 10.9 fl (7.4-10.4); MONO # 0.8 (0.1-0.6); MONO % 4.9 % (1.7-9.3); PLATELET COUNT 218 K/mm3 (130-400); RED BLOOD COUNT 3.57 M/mm3 (4.20-5.60)
[2021-02-17 06:22] LABS: HEMATOCRIT 32.9 % (42.0-52.0)
[2021-02-17 06:33] LABS: MAGNESIUM 2.2 mg/dL (1.6-2.3); PHOSPHOROUS 3.5 mg/dL (2.5-4.5)
[2021-02-17 06:42] LABS: ALBUMIN 2.7 gm/dL (3.5-5.0); BILIRUBIN,TOTAL 0.3 mg/dL (0.0-1.0); CALCIUM 8.2 mg/dL (8.4-10.2); CREATININE, serum 0.66 (0.66-1.25); POTASSIUM 4.5 mmol/L (3.4-5.0); PRE ALBUMIN 17.7 mg/dL (17.6-36.0); TOTAL PROTEIN 5.5 gm/dL (6.4-8.2)
--- NOTE | 2021-02-17 07:45 | NUR ---
BEDSIDE SHIFT REPORT RECEIVED FROM GENA KEY. PATIENT IS CURRENTLY PRONED. SEE GTT TITRATION FLOWSHEET. SUJIT PICC LINE STILL IN PLACE. ARREAGA CATHETER STILL IN PLACE, PATENT AND DRAINING TO GRAVITY. ARTERIAL LINE STILL IN PLACE IN RIGHT RADIAL. MAINTAINING TUBE FEEDS WITH HEAD OF BE AT 30 DEGREES. WILL BE TURNING SUPINE SOON.
--- NOTE | 2021-02-17 09:55 | NUR ---
PATIENT'S HR JUST WENT INTO THE 30s. HAS NOT DONE THAT FOR THE TIME BEING THAT I'VE BEEN TAKING CARE OF HIM. NOTIFIED DR. DARLING OR INCIDENT AND HE SAID HE WILL BE SEEING PATIENT TODAY.
--- NOTE | 2021-02-17 10:09 | NUR ---
DR. CONTRERAS AT BEDSIDE. CONCERNS REGARDING PATIENT NOT HAVING A BOWEL MOVEMENT IN ABOUT 10 DAYS. ORDERS RECEIVED.
--- NOTE | 2021-02-17 11:40 | NUR ---
UPDATED PATIENT'S SISTERTJ REGARDING CURRENT PATIENT STATUS.
--- NOTE | 2021-02-17 12:00 | NUR ---
DR. DARLING AT BEDSIDE. ORDERS RECEIVED.
--- NOTE | 2021-02-17 14:25 | NUR ---
NOTIFIED VIA LAB THAT COVID TEST WAS POSITIVE. CALLED DR. CARRASCO TO NOTIFY AND NO ANSWER.
--- NOTE | 2021-02-17 16:00 | NUR ---
DR. PAVON AT BEDSIDE. WAS NOT SURE IF STILL GOING FORTH WITH SURGERY BECAUSE OR DID NOT HEAR. WILL CALL [facility] AND OR.
--- NOTE | 2021-02-17 16:20 | NUR ---
CALLED OR AND SAID THEY WILL ASSESS AND CALL BACK. DR. CARRASCO DID NOT ANSWER.
--- NOTE | 2021-02-17 16:40 | NUR ---
SURGERY CALLED BACK AND SAID SURGERY WILL STILL HAPPEN AN ADD ON TODAY.
--- NOTE | 2021-02-17 16:47 | NUR ---
DR. CARRASCO AT BEDSIDE. OKAY TO DO SURGERY STILL SOON.
--- NOTE | 2021-02-17 17:00 | NUR ---
PATIENT DUE TO BE GOING TO SURGERY SOON.
--- NOTE | 2021-02-17 17:46 | NUR ---
SURGICAL TECHS HERE TO TAKE PATIENT TO SURGERY.
--- NOTE | 2021-02-17 19:59 | NUR ---
1913 PATIENT RETURNED FROM OR, FRESH TRACH PLACED #6SHILEY DIRT SHOVELER PRESENT CONNECTED TO VENT AT PREVIOUS SETTINGS, ALSO PEG TUBE PLACED TO LEFT-MID ABDOMEN AT 5CM MARKING, CONNECTED TO MONITORS AND SEDATION REINSTATED AT PREVIOUS RATES, NOTED SKIN TEAR TO PATIENT 'S RIGHT CHEEK AREA, NO OTHER ADDITIONAL SITES NOTED. [address] Alondra PAVON TO CLARIFY USE OF PEG TUBE, ORDER RECEIVED FOR MEDS OR DECOMPRESSION ONLY ANNETTE
[2021-02-18] VITALS (616 sets, daily range): BP systolic 99–162; BP diastolic 63–87; PULSE 59–112; TEMP 98.5–99.6; O2SAT 61–100
[2021-02-18 04:09] LABS: ARTERIAL BLD GAS O2 SATURATION 89.1 % (92-100); ARTERIAL BLOOD GAS BASE EXCESS 3.5 (-2-2); ARTERIAL BLOOD GAS HCO3 28.7 meq/L (22-26); ARTERIAL BLOOD GAS PO2 55.8 mmHg (80-100); ARTERIAL BLOOD GAS pH 7.41 (7.35-7.45)
[2021-02-18 05:12] LABS: ARTERIAL BLD GAS TCO2 CT 30.1
[2021-02-18 06:47] LABS: HEMOGLOBIN 11.2 g/dl (13.5-18.0); MEAN CELL VOLUME 94 fl (80.0-100.0); MEAN CORPUSCULAR HEMOGLOBIN 29 pg (27.0-31.0); MEAN CORPUSCULAR HGB CONC 31 g/dl (33.0-37.0); MEAN PLATELET VOLUME 10.9 fl (7.4-10.4); PLATELET COUNT 198 K/mm3 (130-400); RED BLOOD COUNT 3.82 M/mm3 (4.20-5.60); REDCELL DISTRIBUTION WIDTH-CV 14.5 % (11.5-14.5)
[2021-02-18 06:52] LABS: HEMATOCRIT 35.7 % (42.0-52.0)
[2021-02-18 06:57] LABS: CALCIUM 8.7 mg/dL (8.4-10.2); CREATININE, serum 0.7 (0.66-1.25); POTASSIUM 4.1 mmol/L (3.4-5.0)
--- NOTE | 2021-02-18 07:15 | NUR ---
BEDSIDE SHIFT REPORT RECEIVED FROM GENA KEY. PATIENT IN ROOM RESTING COMFORTABLY. VSS. ARREAGA CATHETER STILL IN PLACE. REPORTED TO HAVE TWO BOWEL MOVEMENTS LAST NIGHT. SUJIT PICC STILL IN PLACE. SEE GTT TITRATION FLOWSHEET. TOLERATING NEW TRACH AND PEG.
[2021-02-18 07:45] LABS: BAND 17 % (0-10); EOSINOPHIL 2 % (0-4); LYMPHOCYTE 33 % (20.0-51.0); NEUTROPHILS 41 % (42.0-75.2); PLATELET ESTIMATE NORMAL (NORMAL)
--- NOTE | 2021-02-18 11:38 | NUR ---
SPOKE TO PATIENT'S SISTER AND GAVE PATIENT UPDATE.
--- NOTE | 2021-02-18 13:43 | NUR ---
PATIENT'S SISTER HERE TO STONE SPLITTER CELL PHONE AND WALLET. GAVE ANOTHER UPDATE.
--- NOTE | 2021-02-18 14:53 | NUR ---
SPOKE TO DR. PAVON'S NURSE, DEONNA. RELAYED ORDERS THAT IT WAS OKAY TO RESTART TUBE FEEDING. WILL PLACE NURSING COMMUNICATION ORDER.
[2021-02-19] VITALS (690 sets, daily range): BP systolic 123–148; BP diastolic 72–88; PULSE 69–94; TEMP 98.2–98.6; O2SAT 76–100
[2021-02-19 04:46] LABS: ARTERIAL BLD GAS O2 SATURATION 87.2 % (92-100); ARTERIAL BLD GAS TCO2 CT 29.5; ARTERIAL BLOOD GAS BASE EXCESS 2.4 (-2-2); ARTERIAL BLOOD GAS PCO2 47.8 mmHg (35-45); ARTERIAL BLOOD GAS pH 7.39 (7.35-7.45)
[2021-02-19 05:26] LABS: HEMOGLOBIN 11.1 g/dl (13.5-18.0); MEAN CELL VOLUME 93 fl (80.0-100.0); MEAN CORPUSCULAR HEMOGLOBIN 29 pg (27.0-31.0); MEAN CORPUSCULAR HGB CONC 31 g/dl (33.0-37.0); MEAN PLATELET VOLUME 10.8 fl (7.4-10.4); PLATELET COUNT 190 K/mm3 (130-400); RED BLOOD COUNT 3.81 M/mm3 (4.20-5.60); REDCELL DISTRIBUTION WIDTH-CV 14.4 % (11.5-14.5)
[2021-02-19 05:33] LABS: HEMATOCRIT 35.6 % (42.0-52.0)
[2021-02-19 05:41] LABS: CALCIUM 8.7 mg/dL (8.4-10.2); CREATININE, serum 0.55 (0.66-1.25)
[2021-02-19 05:54] LABS: EOSINOPHIL 2 % (0-4); HYPOCHROMIA 2+; LYMPHOCYTE 27 % (20.0-51.0); METAMYELOCYTE 2 % (0-0); MYELOCYTE 1 % (0-0); NEUTROPHILS 62 % (42.0-75.2); PLATELET ESTIMATE NORMAL (NORMAL)
[2021-02-19 05:55] LABS: ANISOCYTOSIS 1+
--- NOTE | 2021-02-19 07:00 | NUR ---
RECEIVED REPORT FROM GENA HARRINGTON. PT RESTING EASILY. VENT SETTINGS: TV 450, PEEP 17, RR 21, FO2 60%. FC PATENT AND DRAINING TO GRAVITY. ELECTRONIC SENSING EQUIPMENT ASSEMBLER IN PLACE. VSS. CALL LIGHT WITHIN REACH. SEE GTT FLOWSHEET.
--- NOTE | 2021-02-19 09:37 | NUR ---
DR FRAZIER AT BEDSIDE REQUESTING VERSED TO BE CUT TO 5MG/HG AND AFTER 4 HOURS IF PT IS SETTLED STILL DECREASE FENT GTT YO 75MCG/HR AND LEAVE IT FOR TODAY WHILE STILL DECREASING PER PROTOCOL ON VERSED GTT IF PT IS NOT AGITATED. SEE FLOWSHEET.
--- NOTE | 2021-02-19 10:06 | NUR ---
flat screen worker contacted Dereje with [facility] and advised that patient was trached and pegged. Worker faxed clinical updates and will await Dereje's response for appropriateness of transfer.
--- NOTE | 2021-02-19 17:21 | NUR ---
TF RESIDUAL 5 ML. INCREASED TO 40 ML/HR.
--- NOTE | 2021-02-19 19:30 | NUR ---
REPORT RECEIVED ON THIS PATIENT. HE IS AWAKE, COUGHING AGAINST THE VENT. SEDATION BEING WEANED. LEAK HEARD, SPO2 STABLE.
--- NOTE | 2021-02-19 23:42 | NUR ---
DR. CARRASCO CALLED FOR INCREASED LEAKING FROM TRACH. SPO2 HAS DROPPED AND INCREASED FI02 TO 70%. HE TROUBLE SHOOTS WITH ME OVER THE PHONE AND THEN STATES THAT LONG THE PATIENT REMAINS STABLE TONIGHT, HE WILL BE IN TO SEE HIM IN THE MORNING TO EVALUATE THE TRACH. HE STATES TO CALL HIM BACK WITH ANY OTHER CONCERNS.
[2021-02-20] VITALS (653 sets, daily range): BP systolic 89–151; BP diastolic 49–88; PULSE 54–107; TEMP 98.5–98.7; O2SAT 48–100
--- NOTE | 2021-02-20 01:30 | NUR ---
FI02 INCREASED TO 85% D/T SPO2 IN HIGH 80s
[2021-02-20 03:58] LABS: ARTERIAL BLD GAS O2 SATURATION 95.2 % (92-100); ARTERIAL BLD GAS TCO2 CT 30.2; ARTERIAL BLOOD GAS BASE EXCESS 3.4 (-2-2); ARTERIAL BLOOD GAS HCO3 28.8 meq/L (22-26); ARTERIAL BLOOD GAS PCO2 47.1 mmHg (35-45); ARTERIAL BLOOD GAS PO2 76.5 mmHg (80-100)
[2021-02-20 04:06] LABS: HEMOGLOBIN 10.5 g/dl (13.5-18.0); MEAN CELL VOLUME 91 fl (80.0-100.0); MEAN CORPUSCULAR HEMOGLOBIN 29 pg (27.0-31.0); MEAN CORPUSCULAR HGB CONC 32 g/dl (33.0-37.0); MEAN PLATELET VOLUME 10.8 fl (7.4-10.4); PLATELET COUNT 167 K/mm3 (130-400); RED BLOOD COUNT 3.62 M/mm3 (4.20-5.60); REDCELL DISTRIBUTION WIDTH-CV 14.1 % (11.5-14.5)
[2021-02-20 04:15] LABS: HEMATOCRIT 32.8 % (42.0-52.0)
[2021-02-20 04:18] LABS: CALCIUM 8.4 mg/dL (8.4-10.2); CREATININE, serum 0.62 (0.66-1.25); MAGNESIUM 1.9 mg/dL (1.6-2.3); POTASSIUM 3.7 mmol/L (3.4-5.0)
[2021-02-20 04:51] LABS: BAND 8 % (0-10); BASOPHIL 1 % (0-2); EOSINOPHIL 3 % (0-4); LYMPHOCYTE 18 % (20.0-51.0); METAMYELOCYTE 2 % (0-0); NEUTROPHILS 63 % (42.0-75.2); PLATELET ESTIMATE NORMAL (NORMAL)
[2021-02-20 04:53] LABS: HYPOCHROMIA 1+
--- NOTE | 2021-02-20 07:00 | NUR ---
RECEIVED REPORT FROM GENA HARRINGTON. PT RESTING WATCHING TV. VENT SETTINGS: TV 450, PEEP 17, RR 21, FIO2 70%. BEAD SUPERVISOR IN PLACE. FC PATENT AND DRAINING TO GRAVITY. TF INFUSING AT 55ML/HR. VSS.
--- NOTE | 2021-02-20 07:14 | NUR ---
REPORT GIVEN TO GENA ISAAC. PATIENT LYING IN BED, RESTING. PRECEDEX HAS BEEN ON HOLD SINCE 0600.
--- NOTE | 2021-02-20 07:20 | NUR ---
SPOKE TO DR CARRASCO ABOUT PT'S CUFF STILL MAKING A LOT OF NOISE. PROVIDER STATES TO GET A 6.0 CUFFED LONG SHILEY AND HE WILL BE BY SHORTLY.
--- NOTE | 2021-02-20 07:48 | NUR ---
DR CARRASCO AT BEDSIDE FOR ASSESSMENT OF TRACH WITH SCOPE. REQUESTS RT TO COME AND BRING HIM THE LONGER 6.0 TRACH AND EXTRA HANDS. ETT ON STANDBY. AT 0815 DR FRAZIER TO BEDSIDE BECAUSE DR CARRASCO UNSUCCESSFUL TO REPLACE TRACH BACK AND NEEDING ETT IN PLACE, BLOOD NOTED COMING OUT AROUND HOLE. DR CARRASCO REQUESTS PT TO GO TO OR TO REPLACE LONGER TRACH. SEE MAR FOR MEDICATIONS GIVEN TO TRY AND HELP PROCEDURE AT BEDSIDE.
--- NOTE | 2021-02-20 09:37 | NUR ---
PT TO OR AT 0905 AND BACK AT 0937. PER REPORT, NEW TRACH IS 8.[address] RUBALCAVA REQUESTS FIO2 TO DECREASE TO 80% AND ABG ABOUT 1030. RT NOTIFIED. TV 400, PEEP 17, TV 400.
--- NOTE | 2021-02-20 10:40 | NUR ---
DR FRAZIER AT BEDSIDE BECAUSE PT'S PEAK PRESSURES ARE ELEVATED AND PT IS CONSTANTLY COUGHING. PROVIDER REQUESTS VEC PUSH NOW AND TO PLACE PT ON VEC GTT. SEE FLOWSHEET AND MAR.
[2021-02-20 11:08] LABS: ARTERIAL BLD GAS O2 SATURATION 95.4 % (92-100); ARTERIAL BLD GAS TCO2 CT 33.6; ARTERIAL BLOOD GAS HCO3 31.5 meq/L (22-26); ARTERIAL BLOOD GAS PO2 84.7 mmHg (80-100); ARTERIAL BLOOD GAS pH 7.28 (7.35-7.45)
[2021-02-20 11:09] LABS: ARTERIAL BLOOD GAS PCO2 68.3 mmHg (35-45)
--- NOTE | 2021-02-20 11:46 | NUR ---
TOF 10/13. SEE MAR FOR VEC GTT START.
--- NOTE | 2021-02-20 12:05 | NUR ---
TOF /. PT STILL WAKING UP AND LOOKING AT RN.
--- NOTE | 2021-02-20 12:30 | NUR ---
TOF 2/4. SEE FLOWSHEET.
[2021-02-20 14:39] LABS: ARTERIAL BLD GAS O2 SATURATION 98.1 % (92-100); ARTERIAL BLD GAS TCO2 CT 32.5; ARTERIAL BLOOD GAS BASE EXCESS 3.5 (-2-2); ARTERIAL BLOOD GAS HCO3 30.7 meq/L (22-26); ARTERIAL BLOOD GAS PCO2 59.4 mmHg (35-45); ARTERIAL BLOOD GAS PO2 112.6 mmHg (80-100); ARTERIAL BLOOD GAS pH 7.33 (7.35-7.45)
--- NOTE | 2021-02-20 16:33 | NUR ---
TOF 07/15, SEE GTT FLOWSHEET.
--- NOTE | 2021-02-20 17:00 | NUR ---
PT ON VEC GTT. TOF 2.
--- NOTE | 2021-02-20 18:37 | NUR ---
TOF 07/15. SEE GTT FLOWSHEET.
[2021-02-21] VITALS (711 sets, daily range): BP systolic 84–138; BP diastolic 48–81; PULSE 53–90; TEMP 98.5–100.4; O2SAT 82–100
--- NOTE | 2021-02-21 00:22 | NUR ---
PT VENT ALARMING FOR HIGH RR/PRESSURE. WENT TO CHECK PT AND HE WAS CALM AND ALERT. ABLE TO FOLLOW COMMANDS AND ATTEMPTING TO TALK. ALL SEDATION AND VEC DRIPS WERE "PUMPING." CALLED [facility] FOR CHEST XRAY TO VERIFY PICC PLACEMENT WHILE ATTEMPTING TO GET PEREIPHERAL IV ACCESS. LAC PERIPHERAL IV PLACED AND SEDATION STARTED. CHEST XRAY SHOWED PICC IN CORRECT PLACE. ABLE TO FLUSH WITH NO BLOOD RETURN. MEDICATIONS RESUMED THROUGH PICC. PT WELL SEDATED VIA PICC.
--- NOTE | 2021-02-21 00:43 | NUR ---
SINCE PICC WAS EASILY FLUSHED AND XRAY REPORTS BEING IN CORRECT PLACE- SEDATION RESTARTED IN PICC AND PT HAS REMAINED SEDATED. DISCUSSED WITH DR. MCNALLY WHO AGREES TO USE PICC AND HOLD CATHFLO.
[2021-02-21 03:42] LABS: BASO % 0.2 % (0.0-2.0); EOS # 0.2 (0.0-0.7); EOS % 1.2 % (0-4.0); GRAN # 13.6 (1.4-6.5); GRAN % 82.4 % (42.2-75.2); HEMATOCRIT 31.1 % (42.0-52.0); HEMOGLOBIN 9.8 g/dl (13.5-18.0); LYMPH # 1.8 (1.2-3.4); LYMPH % 11.2 % (20.0-51.0); MEAN CELL VOLUME 92 fl (80.0-100.0); MEAN CORPUSCULAR HEMOGLOBIN 29 pg (27.0-31.0); MEAN CORPUSCULAR HGB CONC 32 g/dl (33.0-37.0); MONO # 0.7 (0.1-0.6); PLATELET COUNT 181 K/mm3 (130-400); RED BLOOD COUNT 3.38 M/mm3 (4.20-5.60); REDCELL DISTRIBUTION WIDTH-CV 14.3 % (11.5-14.5)
[2021-02-21 03:56] LABS: CALCIUM 8.1 mg/dL (8.4-10.2); CREATININE, serum 0.62 (0.66-1.25); MAGNESIUM 2.1 mg/dL (1.6-2.3); POTASSIUM 4.4 mmol/L (3.4-5.0)
--- NOTE | 2021-02-21 06:37 | NUR ---
PT TOLERATED SEDATION DECREASE FOR A SHORT TIME BUT WHEN AWAKENED, GOES INTO COUGHING SPELL AND SATS DROP INTO HIGH 80S AND HR INTERMITTENTLY BECOMES TACHYCARDIC. INCREASED PRECEDEX TO 0.6 MCG/KG/HR AND GAVE PO ATIVAN. PT SETTLED AND FOLLOWS COMMANDS BUT REMANS TACHYPENIC.
[2021-02-21 06:43] LABS: ARTERIAL BLD GAS O2 SATURATION 90.4 % (92-100); ARTERIAL BLD GAS TCO2 CT 33.1; ARTERIAL BLOOD GAS BASE EXCESS 4.6 (-2-2); ARTERIAL BLOOD GAS HCO3 31.4 meq/L (22-26); ARTERIAL BLOOD GAS PCO2 57.3 mmHg (35-45); ARTERIAL BLOOD GAS PO2 59.4 mmHg (80-100); ARTERIAL BLOOD GAS pH 7.36 (7.35-7.45)
--- NOTE | 2021-02-21 10:04 | NUR ---
PICC flushed without difficulty or resistance. No blood return noted. Advised cath obed due to increased incidence of central line infection associated with partial occlusion and/or fibrin tail.
--- NOTE | 2021-02-21 20:12 | NUR ---
REPORT GGIVEN TO GENA KEY
[2021-02-22] VITALS (704 sets, daily range): BP systolic 100–130; BP diastolic 59–87; PULSE 50–89; TEMP 98–99.6; O2SAT 66–100
[2021-02-22 04:22] LABS: ARTERIAL BLD GAS O2 SATURATION 96.9 % (92-100); ARTERIAL BLD GAS TCO2 CT 32.9; ARTERIAL BLOOD GAS HCO3 31.4 meq/L (22-26); ARTERIAL BLOOD GAS PCO2 48.8 mmHg (35-45); ARTERIAL BLOOD GAS PO2 88.6 mmHg (80-100); ARTERIAL BLOOD GAS pH 7.43 (7.35-7.45)
[2021-02-22 06:00] LABS: BASO # 0.1 (0.0-0.2); BASO % 0.2 % (0.0-2.0); EOS # 0.1 (0.0-0.7); EOS % 0.5 % (0-4.0); GRAN # 17.6 (1.4-6.5); GRAN % 83.5 % (42.2-75.2); HEMOGLOBIN 11.6 g/dl (13.5-18.0); LYMPH % 9.6 % (20.0-51.0); MEAN CELL VOLUME 91 fl (80.0-100.0); MEAN CORPUSCULAR HEMOGLOBIN 30 pg (27.0-31.0); MEAN CORPUSCULAR HGB CONC 32 g/dl (33.0-37.0); MEAN PLATELET VOLUME 12.1 fl (7.4-10.4); MONO # 1.1 (0.1-0.6); MONO % 5.2 % (1.7-9.3); PLATELET COUNT 197 K/mm3 (130-400); RED BLOOD COUNT 3.93 M/mm3 (4.20-5.60); REDCELL DISTRIBUTION WIDTH-CV 14.6 % (11.5-14.5)
[2021-02-22 06:08] LABS: HEMATOCRIT 35.9 % (42.0-52.0)
--- NOTE | 2021-02-22 07:00 | NUR ---
PT HAS TRACH AND ON THE VENT. PT AWAKE BUT CALM ON SEDATION. VSS. WILL CONINTUE TO PIERREIOR.
[2021-02-22 07:02] LABS: CALCIUM 8.2 mg/dL (8.4-10.2); CREATININE, serum 0.51 (0.66-1.25); MAGNESIUM 2.1 mg/dL (1.6-2.3); POTASSIUM 4.4 mmol/L (3.4-5.0)
--- NOTE | 2021-02-22 17:00 | NUR ---
PT WAKES TO VOICE. PT OBEYS COMMANDS. PT MOVES ALL EXTREMETIES.
[2021-02-23] VITALS (650 sets, daily range): BP systolic 99–160; BP diastolic 60–92; PULSE 56–111; TEMP 98.1–99.3; O2SAT 46–100
[2021-02-23 03:59] LABS: BASO % 0.2 % (0.0-2.0); GRAN % 86.5 % (42.2-75.2); HEMOGLOBIN 10.9 g/dl (13.5-18.0); LYMPH # 0.6 (1.2-3.4); LYMPH % 6.6 % (20.0-51.0); MEAN CELL VOLUME 91 fl (80.0-100.0); MEAN CORPUSCULAR HEMOGLOBIN 29 pg (27.0-31.0); MEAN CORPUSCULAR HGB CONC 32 g/dl (33.0-37.0); MEAN PLATELET VOLUME 11.3 fl (7.4-10.4); MONO # 0.5 (0.1-0.6); MONO % 5.8 % (1.7-9.3); PLATELET COUNT 161 K/mm3 (130-400); RED BLOOD COUNT 3.71 M/mm3 (4.20-5.60); REDCELL DISTRIBUTION WIDTH-CV 14.8 % (11.5-14.5)
[2021-02-23 04:09] LABS: CALCIUM 8.2 mg/dL (8.4-10.2); CREATININE, serum 0.52 (0.66-1.25); POTASSIUM 4.4 mmol/L (3.4-5.0)
[2021-02-23 04:12] LABS: HEMATOCRIT 33.8 % (42.0-52.0)
[2021-02-23 05:48] LABS: ARTERIAL BLD GAS O2 SATURATION 96.7 % (92-100); ARTERIAL BLD GAS TCO2 CT 30.1; ARTERIAL BLOOD GAS BASE EXCESS 4.3 (-2-2); ARTERIAL BLOOD GAS HCO3 28.8 meq/L (22-26); ARTERIAL BLOOD GAS PO2 87.3 mmHg (80-100); ARTERIAL BLOOD GAS pH 7.44 (7.35-7.45)
--- NOTE | 2021-02-23 17:45 | NUR ---
PATIENT HAS BEEN RESTLESS AND AGITATED FOR THE MAJORITY OF THE DAY; SEDATION MEDICATIONS UNCHANGED
--- NOTE | 2021-02-23 21:52 | NUR ---
1920 patient noted to be coughing and desating into the high 80's consistently, entered room and noted copious amount of sticky thick shirley secretion in trach tubing, suctioned and gave patient 100% oxygen boost, patient then assisted to be pulled up in bed with 2 staff, immediately upon sitting patient's hob up patient had moderate emesis of approx 200ml of shirley mucousy liquid. 193 e care notified and order received for zofran, patient given bath continued to need frequent suctioning placed tube feedings on hold at this time to give stomach time to rest. 194 medicated patient with atropine for secretions and zofran patient placed on 100% FiO2 to allow recovery time from previously noted stressors will continue to monitor
--- NOTE | 2021-02-23 23:25 | NUR ---
2200 SPOKE WITH GENARO SHERMAN REGARDING STICKY THICK SECRETIIONS PATIENT HAS HAD ALONG WITH INTERVENTION ATTEMPTED, NEW ORDERS RECEIVED FOR GUAIFENESIN TID
[2021-02-24] VITALS (640 sets, daily range): BP systolic 103–137; BP diastolic 59–94; PULSE 53–132; TEMP 97.5–100.3; O2SAT 83–100
[2021-02-24 04:41] LABS: BASO % 0.2 % (0.0-2.0); EOS # 0.1 (0.0-0.7); EOS % 0.5 % (0-4.0); GRAN # 12.2 (1.4-6.5); GRAN % 78.8 % (42.2-75.2); HEMOGLOBIN 10.1 g/dl (13.5-18.0); LYMPH # 1.7 (1.2-3.4); LYMPH % 11.2 % (20.0-51.0); MEAN CELL VOLUME 93 fl (80.0-100.0); MEAN CORPUSCULAR HEMOGLOBIN 29 pg (27.0-31.0); MEAN CORPUSCULAR HGB CONC 31 g/dl (33.0-37.0); MEAN PLATELET VOLUME 11.3 fl (7.4-10.4); MONO # 1.3 (0.1-0.6); MONO % 8.5 % (1.7-9.3); PLATELET COUNT 247 K/mm3 (130-400); RED BLOOD COUNT 3.48 M/mm3 (4.20-5.60)
[2021-02-24 04:43] LABS: HEMATOCRIT 32.5 % (42.0-52.0)
[2021-02-24 04:58] LABS: BILIRUBIN,TOTAL 0.5 mg/dL (0.0-1.0); C-REACTIVE PROTEIN 7.3 mg/dL (0.0-0.9); CALCIUM 8.5 mg/dL (8.4-10.2); CREATININE, serum 0.68 (0.66-1.25); MAGNESIUM 2.1 mg/dL (1.6-2.3); PHOSPHOROUS 4.2 mg/dL (2.5-4.5); POTASSIUM 4.4 mmol/L (3.4-5.0); TOTAL PROTEIN 6.5 gm/dL (6.4-8.2)
[2021-02-24 05:03] LABS: PRE ALBUMIN 10.6 mg/dL (17.6-36.0)
[2021-02-24 06:15] LABS: ARTERIAL BLD GAS TCO2 CT 31.5; ARTERIAL BLOOD GAS BASE EXCESS 4.2 (-2-2); ARTERIAL BLOOD GAS PCO2 50.4 mmHg (35-45); ARTERIAL BLOOD GAS PO2 60.7 mmHg (80-100); ARTERIAL BLOOD GAS pH 7.39 (7.35-7.45)
--- NOTE | 2021-02-24 07:30 | NUR ---
BEDSIDE SHIFT REPORT RECEIVED FROM GENA KEY. PATIENT IS RESTING IN BED WITH EYES CLOSED. TOLD IN REPORT THAT RIGHT UPPER ARM PICC IS NOT DRAWING BUT STILL IN PLACE. WILL ASSESS. VSS. ARREAGA CATHETER STILL IN PLACE. SEE GTT TITRATION FLOWSHEET.
--- NOTE | 2021-02-24 10:39 | NUR ---
UPDATED PATIENT'S SISTERTJ REGARDING CURRENT PATIENT STATUS.
[2021-02-25] VITALS (658 sets, daily range): BP systolic 105–136; BP diastolic 63–91; PULSE 57–75; TEMP 98.1–98.6; O2SAT 75–100
[2021-02-25 05:32] LABS: ARTERIAL BLD GAS O2 SATURATION 96.6 % (92-100); ARTERIAL BLD GAS TCO2 CT 33.3; ARTERIAL BLOOD GAS BASE EXCESS 5.5 (-2-2); ARTERIAL BLOOD GAS HCO3 31.7 meq/L (22-26); ARTERIAL BLOOD GAS PCO2 54.4 mmHg (35-45); ARTERIAL BLOOD GAS PO2 88.7 mmHg (80-100); ARTERIAL BLOOD GAS pH 7.38 (7.35-7.45)
[2021-02-25 06:19] LABS: BASO % 0.2 % (0.0-2.0); EOS # 0.1 (0.0-0.7); EOS % 1.1 % (0-4.0); GRAN # 7.5 (1.4-6.5); GRAN % 75.8 % (42.2-75.2); HEMOGLOBIN 10.7 g/dl (13.5-18.0); LYMPH # 1.3 (1.2-3.4); LYMPH % 12.9 % (20.0-51.0); MEAN CELL VOLUME 92 fl (80.0-100.0); MEAN CORPUSCULAR HEMOGLOBIN 29 pg (27.0-31.0); MEAN CORPUSCULAR HGB CONC 32 g/dl (33.0-37.0); MEAN PLATELET VOLUME 11.7 fl (7.4-10.4); MONO # 0.9 (0.1-0.6); PLATELET COUNT 248 K/mm3 (130-400); RED BLOOD COUNT 3.67 M/mm3 (4.20-5.60); REDCELL DISTRIBUTION WIDTH-CV 14.6 % (11.5-14.5)
[2021-02-25 06:24] LABS: HEMATOCRIT 33.8 % (42.0-52.0)
[2021-02-25 06:30] LABS: BILIRUBIN,TOTAL 0.2 mg/dL (0.0-1.0); CALCIUM 8.4 mg/dL (8.4-10.2); CREATININE, serum 0.51 (0.66-1.25); POTASSIUM 4.2 mmol/L (3.4-5.0); TOTAL PROTEIN 6.6 gm/dL (6.4-8.2)
--- NOTE | 2021-02-25 08:45 | NUR ---
Discontinued versed drip per Dr. Cummins.
--- NOTE | 2021-02-25 08:45 | NUR ---
Patient alert and slightly drowsy. Able to follow commands appropriately and cooperative with cares. Oriented to person and place. Wrist restraints removed at this time. Has an intermittent forcefull cough. Able to suction a moderate amount of blood tinged sputum. VS stable at time of assessment. Call light left within reach; will continue to monitor.
--- NOTE | 2021-02-25 11:06 | NUR ---
Dereje with [facility] he is awaiting Authorization from [email or web address] and it might be obtained this date. grain ii farmworker contacted patient's sister, Carol and left a message for patient's son, Boris regarding the above information. Dereje will contact Carol and Boris as well. Worker contacted [facility] ambulance and ordered an ambulance to transport when we obtain insurance authorization. Dr Jarett Ramirez is the accepting physician at [facility] in [place], [place].
--- NOTE | 2021-02-25 12:22 | NUR ---
Tobramycin Initial Dosing Pharmacy Note Ordering provider: Guevara Cummins Indication/duration: Pseudomonas pneumonia, 7 days LABS: SCr 0.51, CrCl~186, GFR 177 Recommendation: Will start Tobramycin 500 mg IV q24h (6 mg/kg/day extended interval dosing based on adjusted body weight ~84 kg). Pharmacy will continue to closely monitor and check a 10 hr random tobramycin level post first dose.
--- NOTE | 2021-02-25 13:00 | NUR ---
Entered patient's room as ventilator alarm sounding. Observed patient coughing and suctioned twice. Ventilator continuing to alarm and patient not obtaining adequate tidal volumes. Ventilator appeared to be malfunctioning. Began bagging patient and RT notified. Bagged for approximately 10 minutes with o2 maintaing in 98%. RT brought a new vent and reconnected patient. Will continue to monitor.
--- NOTE | 2021-02-25 14:29 | NUR ---
Resting quietly in bed; no concerns at this time.
--- NOTE | 2021-02-25 18:34 | NUR ---
Sedation vacation not performed due to being on minimal sedation and patient awake and alert and can follow all commands appropriately.
--- NOTE | 2021-02-25 19:33 | NUR ---
Discussed antibiotic regimen with Dr. Rushing. Recommended to DC the Tobramycin and continue Merrem. Hospitalist notified and will follow ID recommendations.
--- NOTE | 2021-02-25 20:00 | NUR ---
Patient alert, able to follow commands. Continues without any restraints. Tolerating trach well. Denies having pain and discomfort. PICC to RUE. Continues on Fentanyl and Precedex drips. LS coarse crackles. BSAx4. One episode of loose stools. Indwelling back catheter patient, and draining cloudy yellow urine. Tube feedings to PEG per orders. Voices no questions, needs, or concerns at this time. Resting in bed with call light within reach.
[2021-02-26] VITALS (702 sets, daily range): BP systolic 123–133; BP diastolic 67–82; PULSE 59–78; TEMP 98.2–98.7; O2SAT 59–100
[2021-02-26 05:01] LABS: ARTERIAL BLD GAS O2 SATURATION 94.1 % (92-100); ARTERIAL BLD GAS TCO2 CT 35.5; ARTERIAL BLOOD GAS BASE EXCESS 8.2 (-2-2); ARTERIAL BLOOD GAS HCO3 33.9 meq/L (22-26); ARTERIAL BLOOD GAS PCO2 52.3 mmHg (35-45); ARTERIAL BLOOD GAS PO2 70.4 mmHg (80-100); ARTERIAL BLOOD GAS pH 7.43 (7.35-7.45)
[2021-02-26 05:17] LABS: BASO % 0.3 % (0.0-2.0); EOS # 0.2 (0.0-0.7); EOS % 1.6 % (0-4.0); GRAN # 8.5 (1.4-6.5); GRAN % 71.2 % (42.2-75.2); LYMPH # 2.2 (1.2-3.4); LYMPH % 18.3 % (20.0-51.0); MEAN CELL VOLUME 93 fl (80.0-100.0); MEAN CORPUSCULAR HGB CONC 32 g/dl (33.0-37.0); MEAN PLATELET VOLUME 10.9 fl (7.4-10.4); MONO # 0.9 (0.1-0.6); MONO % 7.3 % (1.7-9.3); PLATELET COUNT 308 K/mm3 (130-400); RED BLOOD COUNT 3.35 M/mm3 (4.20-5.60); REDCELL DISTRIBUTION WIDTH-CV 14.6 % (11.5-14.5)
[2021-02-26 05:22] LABS: HEMATOCRIT 31.1 % (42.0-52.0); HEMOGLOBIN 9.9 g/dl (13.5-18.0); MEAN CORPUSCULAR HEMOGLOBIN 30 pg (27.0-31.0)
[2021-02-26 05:31] LABS: BILIRUBIN,TOTAL 0.2 mg/dL (0.0-1.0); C-REACTIVE PROTEIN 7.1 mg/dL (0.0-0.9); CALCIUM 8.6 mg/dL (8.4-10.2); CREATININE, serum 0.55 (0.66-1.25); TOTAL PROTEIN 6.6 gm/dL (6.4-8.2)
--- NOTE | 2021-02-26 06:16 | NUR ---
Continues on Fentanyl and Precedex drips. Tolerating well. No restraints needed this shift.
--- NOTE | 2021-02-26 07:00 | NUR ---
RECEIVED REPORT FROM GENA KEY. PT RESTING EASILY ON VENT SETTINGS: SPONTANEOUS, FIO2 45%, PEEP 5. FC PATENT AND DRAINING TO GRAVITY. SEE GTT FLOWSHEET. TF INFUSING AT 10ML/HR. VSS. PT OPENS EYES TO VERBAL BUT DOES NOT FOLLOW COMMANDS. PT DOES START TO GET RESTLESS BUT IF LEFT ALONE ABLE TO FALL BACK TO SLEEP.
--- NOTE | 2021-02-26 07:00 | NUR ---
RECEIVED REPORT FROM GENA LAWLER. PT RESTING EASILY ON CURRENT VENT SETTINGS: TV 400, RR 24, PEEP 10, FIO2 55%. FC PATENT AND DRAINING TO GRAVITY. CALL LIGHT WITHIN REACH. VSS. SEE GTT FLOWSHEET. TF INFUSING IN PEG TUBE AT 55ML/HR. ABLE TO FOLLOW COMMANDS AND VILLARREAL X4.
--- NOTE | 2021-02-26 10:27 | NUR ---
TF INCREASED TO 60 ML/HR PER ORDERS.
--- NOTE | 2021-02-26 13:58 | NUR ---
tent worker gave Dereje with [facility] updates and faxed clinical information. Worker notified patient's nurse to have Dr Cummins contact Dr Ramirez [phone] in the am of 02/27/2021. Dereje is working on obtaining authorization from insurance.
--- NOTE | 2021-02-26 14:00 | NUR ---
SPOKE TO DR CHAVEZ ABOUT PT'S ISOLATION AND WAS POSITIVE SINCE 01/27/21. PROVIDER STATES PT CAN COME OUT OF ISOLATION TODAY. DULCE MARIA, RN DIRECTOR OF ICU NOTIIFIED AND HAS TO SPEAK TO CASE MANAGEMENT ABOUT [facility] STATUS AND RT ABOUT VENT TUBING BEFORE MOVING PT.
--- NOTE | 2021-02-26 19:34 | NUR ---
spoke with patient's sister, wayne who stated that they would be here at 9 am tommorow to visit with patient as previously agreed upon, also suggested that maybe they bring his cell phone back to him as he had the potential to text message them to be able to keep in contact
[2021-02-27] VITALS (90 sets, daily range): BP systolic 123–132; BP diastolic 76–82; PULSE 75–90; TEMP 98.2–98.7; O2SAT 78–98
[2021-02-27 04:15] LABS: ARTERIAL BLD GAS O2 SATURATION 89.2 % (92-100); ARTERIAL BLD GAS TCO2 CT 40.4; ARTERIAL BLOOD GAS BASE EXCESS 10.7 (-2-2); ARTERIAL BLOOD GAS HCO3 38.5 meq/L (22-26); ARTERIAL BLOOD GAS PO2 55.9 mmHg (80-100); ARTERIAL BLOOD GAS pH 7.43 (7.35-7.45)
[2021-02-27 04:38] LABS: HEMOGLOBIN 10.6 g/dl (13.5-18.0); MEAN CELL VOLUME 93 fl (80.0-100.0); MEAN CORPUSCULAR HEMOGLOBIN 30 pg (27.0-31.0); MEAN CORPUSCULAR HGB CONC 32 g/dl (33.0-37.0); MEAN PLATELET VOLUME 10.7 fl (7.4-10.4); PLATELET COUNT 375 K/mm3 (130-400); RED BLOOD COUNT 3.59 M/mm3 (4.20-5.60); REDCELL DISTRIBUTION WIDTH-CV 14.8 % (11.5-14.5)
[2021-02-27 04:43] LABS: HEMATOCRIT 33.4 % (42.0-52.0)
[2021-02-27 04:50] LABS: ALANINE AMINOTRANSFERASE 49 U/L (4-49); ALBUMIN 3.1 gm/dL (3.5-5.0); ALKALINE PHOSPHATASE 89 U/L (50-136); ANION GAP 3 mmol/L (7-16); AST,SGOT 31 U/L (15-37); BILIRUBIN,TOTAL < 0.1 mg/dL (0.0-1.0); BLOOD UREA NITROGEN 23 mg/dL (9-20); C-REACTIVE PROTEIN 4.3 mg/dL (0.0-0.9); CALCIUM 8.7 mg/dL (8.4-10.2); CARBON DIOXIDE 39 mmol/L (22-30); CHLORIDE 95 mmol/L (98-107); CREATININE, serum 0.56 (0.66-1.25); GLUCOSE 108 mg/dL (74-106); POTASSIUM 4.2 mmol/L (3.4-5.0); SODIUM 137 mmol/L (137-145); TOTAL PROTEIN 6.9 gm/dL (6.4-8.2)
[2021-02-27 05:05] LABS: BAND 8 % (0-10); EOSINOPHIL 8 % (0-4); LYMPHOCYTE 24 % (20.0-51.0); METAMYELOCYTE 1 % (0-0); NEUTROPHILS 51 % (42.0-75.2); PLATELET ESTIMATE NORMAL (NORMAL)
[2021-02-27 05:06] LABS: HYPOCHROMIA 2+
--- NOTE | 2021-02-27 07:00 | NUR ---
RECEIVED REPORT FROM GENA KEY. PT SLEEPING, VENT SETTINGS: TV 400, RR 24, PEEP 10, FIO2 45%. FC PATENT AND DRAINING TO GRAVITY. NO GTTS ON AT THIS TIME. VSS. CALL LIGHT WITHIN REACH. TF INFUSING AT 60ML/HR.
--- NOTE | 2021-02-27 09:27 | NUR ---
Dereje with [facility] states that their [facility] will accept patient today, pending insurance authorization. Worker faxed clinical information to Dereje and ordered [facility] ambulance for 3:00. Worker left messages for son, Boris, and sisterCarol regarding the above information and to rn call center.
--- NOTE | 2021-02-27 11:36 | NUR ---
Patient's sister, Carol, is at bedside and is aware of transfer plans. Family will notify sonBoris of plans.
--- NOTE | 2021-02-27 14:23 | NUR ---
[facility] accepts patient this date and states that they obtained Authorization from patient's insurance. general house worker arranged [facility] ambulance to transport today at 3:00. Family is aware of transfer this date.
--- NOTE | 2021-02-27 14:48 | NUR ---
foundry worker faxed [facility] in [place].
--- NOTE | 2021-02-27 16:09 | NUR ---
PT LEFT AT 1550. REPORT CALLED TO GENA SHEA AT [facility] IN [place]. TJ GARCÍA UPDATED AND TOLD VISITOR POLICY THERE. ALL PERSONAL BELONGINGS SENT WITH PT WITH [facility].
== END 2021-02-27 16:00 | DRG 4 ==
LOC: COL.ER 13:21 → ICU 18:02 → COL.ER 18:02 → ICU 18:03
PROVIDERS: Emergency Medicine; Internal Medicine Pulmonary Disease; Internal Medicine Sleep Medicine; Nurse Practitioner Family; Otolaryngology; Student in an Organized Health Care Education/Training Program; Surgery; ADMIT Internal Medicine
PROC: 05HM33Z Insertion of Infusion Device into Right Internal Jugular Vein, Percutaneous Approach (ICD-10-PCS; 2021-01-30)
PROC: 5A1955Z Respiratory Ventilation, Greater than 96 Consecutive Hours (ICD-10-PCS; 2021-02-02)
PROC: 0BH17EZ Insertion of Endotracheal Airway into Trachea, Via Natural or Artificial Opening (ICD-10-PCS; 2021-02-02)
PROC: 02HV33Z Insertion of Infusion Device into Superior Vena Cava, Percutaneous Approach (ICD-10-PCS; 2021-02-05)
PROC: XW033E5 Introduction of Remdesivir Anti-infective into Peripheral Vein, Percutaneous Approach, New Technology Group 5 (ICD-10-PCS; 2021-02-07)
PROC: 0BC98ZZ Extirpation of Matter from Lingula Bronchus, Via Natural or Artificial Opening Endoscopic (ICD-10-PCS; 2021-02-12)
PROC: 0W9930Z Drainage of Right Pleural Cavity with Drainage Device, Percutaneous Approach (ICD-10-PCS; 2021-02-13)
PROC: 0DH63UZ Insertion of Feeding Device into Stomach, Percutaneous Approach (ICD-10-PCS; principal; 2021-02-17 18:10)
PROC: 0B110F4 Bypass Trachea to Cutaneous with Tracheostomy Device, Open Approach (ICD-10-PCS; 2021-02-17 18:10)
DX: U07.1 COVID-19 (principal); J96.01 Acute respiratory failure with hypoxia; J12.82 Pneumonia due to coronavirus disease 2019; J69.0 Pneumonitis due to inhalation of food and vomit; Z68.41 Body mass index [BMI] 40.0-44.9, adult; J93.9 Pneumothorax, unspecified; F41.9 Anxiety disorder, unspecified; G47.33 Obstructive sleep apnea (adult) (pediatric); R00.1 Bradycardia, unspecified; K76.0 Fatty (change of) liver, not elsewhere classified; E66.01 Morbid (severe) obesity due to excess calories; D72.829 Elevated white blood cell count, unspecified; T38.0X5A Adverse effect of glucocorticoids and synthetic analogues, initial encounter; B96.5 Pseudomonas (aeruginosa) (mallei) (pseudomallei) as the cause of diseases classified elsewhere
CPT/HCPCS: 99232-AI; 99233-AI; 99239; A7521; C1751; J0330; J0692; J0696; J1100; J1650; J1815; J1940; J2060; J2185; J2250; J2405; J2543; J2704; J2997; J3010; J3260; J3480; J7030; J7050; J7060; J8540; Q0249

== ENCOUNTER 2021-05-27 15:30 | Outpatient (RCR) | payer BC ==
[~2021-05-27 15:30] MED LIST changes: +VANTIN100 MG; +ZITHROMAX Z PA250 MG PO
== END 2021-07-01 | disposition home or self-care (01) ==
LOC: MKS.ESL.PT
DX: B94.8 Sequelae of other specified infectious and parasitic diseases (principal); R53.81 Other malaise